=== PATIENT | male | born 1945 | race Asian ===

== ENCOUNTER 2019-10-02 02:34 | Inpatient (IN) | payer OTHER, MEDICARE ==
[~2019-10-02] VITALS: Ht 167.6 cm; Wt 42.2 kg
[2019-10-02 03:21] LABS: BASOPHIL % 0.2 % (0-2); PLATELET COUNT 205 x10^3mcL (130-400); RED CELL DISTRIBUTION WIDTH 13.8 % (11.5-14.5)
[2019-10-02 03:22] LABS: CALCIUM 8.8 mg/dL (8.5-10.1); CARBON DIOXIDE 24.8 mmol/L (21-32); CHLORIDE SERUM 101 mmol/L (98-107); CREATININE SERUM 0.5 mg/dL (0.7-1.3); GLUCOSE SERUM 116 mg/dL (74-106); POTASSIUM SERUM 3.8 mmol/L (3.5-5.1); SODIUM SERUM 137 mmol/L (136-145)
[2019-10-02 03:27] LABS: ALBUMIN 3.1 g/dL (3.4-5.0); ALKALINE PHOSPHATASE 59 U/L (46-116); ALT/SGPT 34 U/L (16-63); AST/SGOT 24 U/L (15-37); BILIRUBIN TOTAL 0.55 mg/dL (0.20-1.00); TOTAL PROTEIN, SERUM 7.4 g/dL (6.4-8.2)
[2019-10-02 04:29] LABS: CHOLESTEROL/HDL RATIO 5.1
[2019-10-02 04:30] VITALS: BP 155/98
[2019-10-02 04:33] LABS: T3 TOTAL 0.91 ng/mL
[2019-10-02 04:34] LABS: FREE T4 1.77 ng/dL (0.76-1.46); FREE THYROXINE INDEX 3.8 ug/dL (1.4-4.5); T4(THYROXINE) 10.3 ug/dL (4.7-13.3)
[2019-10-02 05:28] LABS: UA SPECIFIC GRAVITY 1.025 (1.005-1.035); microscopic required? YES; urine erythrocyte TRACE (NEGATIVE)
[2019-10-02 05:40] LABS: AMPHETAMINE QUAL UR NONE DETECTED (See below)
[2019-10-02 08:15] VITALS: BP 153/98
[2019-10-02 09:24] VITALS: Ht 167.6 cm; Wt 42.2 kg
[2019-10-02 11:10] VITALS: BP 140/62
[2019-10-02 15:15] VITALS: BP 123/80
[2019-10-02 17:31] VITALS: BP 118/79
[2019-10-02 23:12] VITALS: BP 115/76
[2019-10-03 05:40] VITALS: BP 101/67
[2019-10-03 06:57] LABS: BASOPHIL % 0.1 % (0-2); PLATELET COUNT 208 x10^3mcL (130-400)
[2019-10-03 07:22] LABS: CARBON DIOXIDE 27.3 mmol/L (21-32); CHLORIDE SERUM 100 mmol/L (98-107); CREATININE SERUM 0.4 mg/dL (0.7-1.3); GLUCOSE SERUM 111 mg/dL (74-106); MAGNESIUM 2.2 mg/dL (1.8-2.4); PHOSPHOROUS 3.6 mg/dL (2.5-4.9); POTASSIUM SERUM 3.6 mmol/L (3.5-5.1); SODIUM SERUM 137 mmol/L (136-145)
[2019-10-03 10:09] VITALS: BP 99/63
[2019-10-03 12:29] VITALS: BP 117/82
[2019-10-03 16:22] VITALS: BP 105/68
[2019-10-03 20:35] VITALS: BP 125/76
[2019-10-04 05:37] VITALS: BP 112/73
[2019-10-04 06:23] LABS: BASOPHIL % 0.2 % (0-2); PLATELET COUNT 255 x10^3mcL (130-400); RED CELL DISTRIBUTION WIDTH 13.7 % (11.5-14.5)
[2019-10-04 06:57] LABS: CARBON DIOXIDE 26.7 mmol/L (21-32); CHLORIDE SERUM 104 mmol/L (98-107); GLUCOSE SERUM 103 mg/dL (74-106); POTASSIUM SERUM 3.2 mmol/L (3.5-5.1); SODIUM SERUM 140 mmol/L (136-145)
[2019-10-04 06:58] LABS: CALCIUM 9.3 mg/dL (8.5-10.1); CREATININE SERUM 0.4 mg/dL (0.7-1.3); MAGNESIUM 2.2 mg/dL (1.8-2.4); PHOSPHOROUS 2.9 mg/dL (2.5-4.9)
[2019-10-04 08:14] VITALS: BP 114/76
[2019-10-04] MEDS ORDERED: XARELTO15 M1 PO (09:36)
[2019-10-04] MEDS ORDERED: LEVAQUIN500 M1 PO (09:37)
[2019-10-04 10:31] VITALS: BP 114/76
[2019-10-04] MEDS ORDERED: ACYCLOVIR400 MG PO (10:34)
[2019-10-04 12:35] VITALS: BP 126/83
== END 2019-10-04 16:14 | disposition home or self-care (01) | DRG 134 ==
LOC: ED 02:34 → IC 03:30 → DU 03:30 → IC 04:23 → DU 17:47
PROVIDERS: Emergency Medicine; ADMIT Internal Medicine
DX: I26.99 Other pulmonary embolism without acute cor pulmonale (principal); J96.01 Acute respiratory failure with hypoxia; E43 Unspecified severe protein-calorie malnutrition; G12.21 Amyotrophic lateral sclerosis; J18.9 Pneumonia, unspecified organism; E78.5 Hyperlipidemia, unspecified; R13.10 Dysphagia, unspecified; I10 Essential (primary) hypertension; Z74.01 Bed confinement status; Z68.1 Body mass index [BMI] 19.9 or less, adult; Z23 Encounter for immunization
CPT/HCPCS: 36600; 83880; 84439; 85378; 87804; 90658; 90732; 97110-GP; G0378; J0133; J1100; J1644; J1956; J2543; J7040; J7620; Q0092; Q9967

== ENCOUNTER 2019-10-07 11:58 | Inpatient (IN) | payer OTHER, MEDICARE ==
[~2019-10-07] VITALS: Ht 165.1 cm; Wt 47.0 kg
[~2019-10-07 11:58] MED LIST: ACYCLOVIR400 MG PO; LEVAQUIN500 M1 PO; XARELTO15 M1 PO
--- NOTE | 2019-10-07 12:10 | NUR ---
PT BIBA FROM HOME WITH CO INCREASED ALOC. PER SON, PT WAS [place] [facility] [place] AND WAS DIAGNOSED WITH PE AND GIVEN RX FOR BLOOD THINNERS, BUT PER SON, INSURANCE IS NOT COVERING MEDICATIONS SO PT HAS NOT BEEN TAKING MEDS. PT HAS HX OF ALS AND IS BED BOUND AND URINATES IN BED LYNCH WITH HELP BY SON. PER SON, PT DOES NOT REALLY COMMUNICATE AND JUST MUMBLES. PER SON PT WANTED TO USE THE RESTROOM THIS AM AT 0700 AND EVER SINCE THEN PT HAS NOT BEEN ACTING NORMAL PER SON. SON STATES HIS COLOR WAS MORE PALE AND WAS HAVING EXTRA WEAKNESS. AT THIS TIME PT IS RESPONDING AND LOOKING AND WATCHING SON, SON STATES COLOR IS COMING MORE TOO AND PT IS LOOKING MORE " NORMAL." PT 90% O2 ON RA AND 96% ON 2L NC. PT TEMP WAS LOW AND MADE AWARE. ANNALISE DILLARD INITIATED. PT IS BEING TREATED AT THIS TIME FOR SHINGLES. SCABS NOTED TO LOWER BACK WHICH PT SON STATES IS LOOKING BETTER SINCE TAKING MEDS. PT IS HOOKED UP TO FULL MONITORS, PT ABLE TO FOLLOW COMMANDS TO BEST OF ABILITY. EKG DONE AT BEDSIDE. PT SON REMAINS AT BEDSIDE, WILL CONTINUE TO MONITOR.
--- NOTE | 2019-10-07 13:00 | NUR ---
PT TO CT VIA [facility].
--- NOTE | 2019-10-07 13:07 | NUR ---
PT RETURNED FROM CT VIA [facility]
[2019-10-07 13:10] LABS: UA SPECIFIC GRAVITY >=1.030 (1.005-1.035); microscopic required? YES; urine erythrocyte 2+ (NEGATIVE)
[2019-10-07 13:13] LABS: BASOPHIL % 0.8 % (0-2); PLATELET COUNT 334 x10^3mcL (130-400)
[2019-10-07 13:45] LABS: CALCIUM 8.8 mg/dL (8.5-10.1); CARBON DIOXIDE 25.5 mmol/L (21-32); CHLORIDE SERUM 105 mmol/L (98-107); CREATININE SERUM 0.5 mg/dL (0.7-1.3); GLUCOSE SERUM 154 mg/dL (74-106); POTASSIUM SERUM 4.1 mmol/L (3.5-5.1); SODIUM SERUM 143 mmol/L (136-145)
[2019-10-07 13:50] LABS: ALKALINE PHOSPHATASE 58 U/L (46-116); ALT/SGPT 47 U/L (16-63); AST/SGOT 28 U/L (15-37); BILIRUBIN TOTAL 0.45 mg/dL (0.20-1.00); TOTAL PROTEIN, SERUM 7.3 g/dL (6.4-8.2)
--- NOTE | 2019-10-07 14:28 | NUR ---
BIPAP IN PLACE. PT TOLERATING WELL
[2019-10-07 15:50] LABS: CHOLESTEROL/HDL RATIO 3.9
[2019-10-07 15:59] LABS: FREE T4 1.64 ng/dL (0.76-1.46); FREE THYROXINE INDEX 4.2 ug/dL (1.4-4.5); T3 TOTAL 0.67 ng/mL; T4(THYROXINE) 10.2 ug/dL (4.7-13.3)
[2019-10-07 16:01] VITALS: BP 119/79
--- NOTE | 2019-10-07 16:20 | NUR ---
PT WAS RECEIVED BY PRIMARY NURSE OMAR FROM ED AT 1531H. PT CAME IN DUE TO ALOC, WEAKNESS AND SOB. PT HAS HIS EYES OPEN, EYE ARE ABLE TO TRACK, NO VERBAL RESPONSE AT THIS TIME, PER PT'S SON, PT ABLE TO SPEAK 1-2 WORDS AT TIMES. PT ON BIPAP WITH THE FF. SETTINGS: IPAP=14, EPAP=6, FIO2=60%, RATE=18. SHALLOW BREATHING NOTED. NO S/S OF SOB NOTED AT THIS TIME. NO S/S OF CHEST PAIN/PRESSURE, SINUS TACHYCARDIA ON THE MONITOR, HR AT 113. NO S/S OF ABDOMINAL DISCOMFORT. ABDOMEN IS SOFT. W/ SINHALA 16 MCCAULEY CATHETER DRAINING W/ YELLOW COLORED URINE. W/ DARK DISCOLORATIONS ON THE RIGHT ABDOMEN AND RIGHT BACK, W/ ECCHYMOSIS ON BUE, AND OPEN WOUNDS ON THE MID-BACK (LARGEST WOUND MEASUREMENT: 1CM X 0.5CM, NO DRAINAGE/FOUL ODOR NOTED). IV SITE PATENT AND INTACT. SIDE RAILS UPX2. CALL LIGHT ON REACH. PRIMARY NURSE OMAR AT BEDSIDE FOR CONTINUITY OF CARE.
[2019-10-07 16:24] VITALS: BP 118/74
--- NOTE | 2019-10-07 18:49 | NUR ---
HEPARIN PROTOCOL INITIATED. LOADING DOSE 2600 UNIT BOLUS ADMINISTERED. HEPARIN STARTED AT INITIAL RATE OF 500 UNITS/HR. NEXT PTT ORDERED FOR 0045. WITNESSED AND VERIFIED W/ RN SANTOSH.
--- NOTE | 2019-10-07 19:26 | NUR ---
PT RESTING IN BED, AWAKE, NON-VERBAL, RESP E/U ON 2L NC. NO ACUTE DISTRESS NOTED. IV TO LH, HEPARIN DRIP INFUSING WELL AT 500 UNITS/HR. SALINE LOCK TO RAC W/ NO ERYTHEMA OR EDEMA. MCCAULEY IN PLACE DRAIING GREY URINE TO GRAVITY. BED IN LOWEST POSITION AND CALL LIGHT WITHIN REACH. CARE ENDORSED TO VICTORIA GONZÁLES.
--- NOTE | 2019-10-07 19:35 | NUR ---
RECEIVED PT FROM DAY SHIFT RN. PT AWAKE, NON-VERBAL. FAMILY MEMEBER AT BEDSIDE. PT ABLE TO COMMUNICATE WITH HEAD GESTURES YES/NO QUESTIONS. PT DENIES PAIN. BREATHING EVEN AND UNLABORED ON NC 2L/MIN NO SOB NOTED, RT PROTOCOL. TELE #14 ST HR 101. NO ACUTE DISTRESS NOTED. IV LH INFUSING HEPARIN DRIP AT A RATE OF 500 UNITS/HR. NO ACTIVE BLEEDING NOTED. IV RAC PATENT. F/C IN PLACE DRAINING DARK GREY URINE. CALL BUTTON WITHIN REACH. SAFETY PRECAUTIONS IN PLACE. WILL CONTINUE TO MONITOR. CONTACT PRECAUTIONS IN PLACE.
--- NOTE | 2019-10-07 20:09 | NUR ---
PER DR POON HEPARIN DRIP RE-ADJUST TO 800 UNITS/HR PER PE HEPARIN PROTOCOL.
[2019-10-07 21:05] VITALS: BP 137/91
--- NOTE | 2019-10-08 00:38 | NUR ---
PT AWAKE, PT ON BIPAP. NO RESP DISTRESS NOTED. NO ACUTE DISTRESS NOTED. HEPARIN DRIP INFUSING AT 800 UNITS/HR WITH NO ACTIVE BLEEDING. PT TURN AND REPOSITIONED. SAFETY PRECAUTIONS IN PLACE. WILL MONITOR.
--- NOTE | 2019-10-08 01:55 | NUR ---
PTT RESULT OF 88.3 HEPARIN DRIP ADJUSTED PER HEAPRIN DRIP CALCULATION, VERIFIED WITH SECOND RN. HEPARIN DRIP INFUSION AT A RATE OF 700 UNITS/HR. NO ACTIVE BLEEDING NOTED. NEXT PTT ORDER.
[2019-10-08 05:39] VITALS: BP 106/73
--- NOTE | 2019-10-08 06:21 | NUR ---
PT SLEPT POORLY THROUGHOUT THE NIGHT WITH NO ACUTE DISTRESS NOTED. BREATHING EVEN AND UNLABORED ON NC 2L/MIN NO SOB NOTED. PT USED BIPAP THROGUHOUT THE NIGHT. RT PROTOCOL. IV LH PATENT HEPARIN DRIP INFUSING AT RATE OF 700 UNITS/HR. NO ACTIVE BLEEDING NOTED. IV RAC PATENT, INFUSING WELL. PT TURN AND REPOSITIONED Q2HRS AND NEEDED. F/C IN PLACE DRAINING DARK GREY COLOR URINE. CALL BUTTON WITHIN REACH.SAFETY PRECAUTIONS IN PLACE. SON AT BEDSIDE. WILL CONTINUE TO MONITOR AND ENDORSE CARE TO DAY SHIFT RN.
[2019-10-08 06:30] LABS: BASOPHIL % 0.3 % (0-2); PLATELET COUNT 334 x10^3mcL (130-400); RED CELL DISTRIBUTION WIDTH 13.7 % (11.5-14.5)
--- NOTE | 2019-10-08 07:30 | NUR ---
PT IS AAOX4, NONVERBAL, ABLE TO MAKE NEEDS KNOWN WHEN COMMUNICATING WITH FAMILY. PT ON BIPAP: IPAP 14, RR 18, EPAP6, O2 AT 40%. TELE [address] READING NSR. IV CATH TO LH WITH HEPARIN RUNNING AT 800 UNIT/HOUR. IV CATH TO RAC WITH FLUIDS RUNNING. BOTH SITES WITHIN NORMAL LIMITS. NO S/S OF INFECTION OR INFILTRATION. COVERED WITH CDI DRESSINGS. PT UNABLE TO MOVE SELF, WILL BE TURNED AND REPOSITIONED Q 2 HOURS AND PRN. MCCAULEY CATH IN PLACE, PATENT, DRAINING GREY URINE. PT NOTED WITH SMALL SCRATCHES WITH SCABS TO BACK, ARELY. NO S/S OF INFECTION NOTED. CALL LIGHT WITHIN REACH. BED IN LOWEST POSITION. CONTACT PRECAUTIONS IN PLACE FOR HX OF SHINGLES.
--- NOTE | 2019-10-08 07:37 | NUR ---
PT AWAKE. NO SIGNS OF ACUTE DISTRESS NOTED. HEPARIN DRIP INFUSING TO LH AT A RATE OF 700 UNITS/HR. NO BLEEDING NOTED. NO ACUTE DISTRESS NOTED. CALL BUTTON WITHIN REACH. SAFETY PRECAUTIONS IN PLACE. ENDORSED CARE TO DAY SHIFT RN, ALL QUESTIONS ADDRESSED.
--- NOTE | 2019-10-08 08:17 | NUR ---
LAB REPORTED THAT PT'S PTT IS THERAPEUTIC AT 61.4. HEPARIN WILL REMAIN RUNNING AT 700 UNITS/HOUR AT THIS TIME. A NEW PTT HAS BEEN ORDER AT 1200 THIS DAY. WILL CONTINUE TO MONITOR. PT AND PT'S FAMILY MADE AWARE.
--- NOTE | 2019-10-08 08:20 | NUR ---
REASSED PT'S VS S/P 15 MIN, VS T 97.6, 97, 15, 92/61 (68), 99% ON O2 N/C AT 2 LMP. PT DENIES S/S OF BLOOD TRANSFUSION REACTION. RESP EVEN AND UNLABORED. NO DISTRESS NOTED. DENIES PAIN AT THIS TIME. CALL LIGHT WITHIN REACH.
[2019-10-08 08:30] VITALS: BP 97/71
[2019-10-08 09:45] LABS: CALCIUM 8.3 mg/dL (8.5-10.1); CARBON DIOXIDE 23.4 mmol/L (21-32); CHLORIDE SERUM 108 mmol/L (98-107); CREATININE SERUM 0.4 mg/dL (0.7-1.3); GLUCOSE SERUM 107 mg/dL (74-106); POTASSIUM SERUM 3.3 mmol/L (3.5-5.1); SODIUM SERUM 144 mmol/L (136-145)
--- NOTE | 2019-10-08 12:09 | NUR ---
KCL 20 MEQ PO GIVEN FOR K+= 3.3. ZOSYN IVPB GIVEN. R/T ASSISTED WITH BIPAP PT TOOK KCL PO. BIPAP IN PLACE AT THIS TIME. PT DENIES PAIN. CALL LIGHT WITHIN REACH. WILL CONTINUE TO MONITOR.
--- NOTE | 2019-10-08 13:39 | NUR ---
NEW PTT= 66.7. PT'S HEPARIN DRIP REDUCED TO 600 UNITS/HOUR. VERIFIED BY VICTORIA RUDOLPH. PT MADE AWARE. NEW PTT ORDERED FOR 1729 TODAY. WILL CONTINUE TO MONITOR.
[2019-10-08 13:40] VITALS: BP 143/88
--- NOTE | 2019-10-08 15:07 | NUR ---
SCHEDULED MED GIVEN AND TOLERATED WELL CRUSHED WITH APPLE SAUCE. R/T ASSISTED WITH BIBAP DURING ADMINISTRATION. PT DENIES PAIN AT THIS TIME. BIPAP IN PLACE. CALL LIGHT WITHIN REACH. FAMILY AT BEDSIDE.
--- NOTE | 2019-10-08 16:06 | NUR ---
AIR MATRESS PLACE FOR SKIN MAINTENANCE. PT TOLERATED ACTIVITY WELL.
--- NOTE | 2019-10-08 17:17 | NUR ---
SPOKE WITH DR. DURHAM, MADE HIM AWARE PT'S ALTHOUGH PT IS ON N/S AT 100/HR, PT URINE OUTPUT IS APPROX 33ML/HOUR. PT HAS BLOODY URINE. PT HAS DECREASED APPETITE AND ONLY TOLERATED 2 ENSURE TODAY. NO NEW ORDERS AT THIS TIME. FAMILY HAS BEED EDUCATED ON THE OPTION FOR HOSPICE OR GTUBE PLACEMENT AND TRACH.
[2019-10-08 17:25] VITALS: BP 140/89
--- NOTE | 2019-10-08 17:47 | NUR ---
HEPARIN HELD PER DR. DURHAM, PT AWAITING U/S BLADDER DUE TO ACTIVE BLEEDING. MCCAULEY CLAMPED PER U/S TECH PT'S BLADDER NEEDS TO BE FULL. U/S TECH STATED IT WILL BE 2-3 HOURS BEFORE U/S WILL BE TAKEN. DR. DURHAM MADE AWARE. MCCAULEY WAS CLAMPED AT 1745. WILL ENDORSE TO NEXT SHIFT AND MADE RADHA, ORGANIZATIONAL DEVELOPMENT CONSULTANT NURSE AWARE. FAMILY MADE AWARE OF NEW ORDERS.
--- NOTE | 2019-10-08 18:21 | NUR ---
PT IS AAOX4, NONVERBAL. HEPARIN DRIP HELD AT THIS TIME UNTIL 1PM ON O. PT'S MCCAULEY CATH CLAMPED AT THIS TIME DUE TO PENDING U/S OF BLADDER, NOC RN WILL BE MADE AWARE. IV CATH TO RAC AND LH PATENT, SITES WNL. PT ON BIPAP WITH CONTIUOUS PULSE OX. AIR MATRESS IN PLACE. BED ALARM ON. PT TURNED AND REPOSITIONED Q 2 HOURS AND PRN THROUGH OUT SHIFT. FAMILY AT BEDSIDE. WILL CONTINUE TO MONITOR.
--- NOTE | 2019-10-08 19:15 | NUR ---
PT RECEIVED A/O X4, NONVERBAL, PT PRIMARILY UNDERSTANDS ANDORRAN. FAMILY AT BEDSIDE IS ABLE TO COMMUNICATE WITH PT; PT NODS OR SHAKES HEAD TO YES/NO QUESTIONS. TELE #14, SINUS TACH, PT DENIES ANY CP/PRESSURE. PULSES PALPABLE, NO EDEMA PRESENT. BREATHING IS EVEN AND UNLABORED ON BIPAP: IPAP-14, EPAP-6, RATE-18, 02-40%, CONT PULSE OX-96%, NO RESP DISTRESS OBSERVED. ABD SOFT AND NONDISTENDED, NO N/V PRESENT. MCCAULEY CATH SECURED AND IN PLACE, DRAINING TO GRAVITY, DARK GREY URINE NOTED IN DRAINAGE BAG, MCCAULEY CATH CLAMPED AT THIS TIME, PENDING US BLADDER. GENERALIZED WEAKNESS, ON AIR MATTRESS. NO S/S OF PAIN OBSERVED. CONTACT PRECAUTIONS IN PLACE FOR HX OF SHINGLES. IVF INFUSING WELL TO RAC, SL TO LH, IV SITES PATENT AND INTACT. HEPARIN DRIP FOR PE ON HOLD AT THIS TIME UNTIL 10/09/19 @ 1300. NO ACUTE DISTRESS NOTED. FAMILY AT BEDSIDE. BED IN LOWEST SETTING, SIDE RAILS UP X2, CALL LIGHT WITHIN REACH. WILL CONT TO MONITOR.
[2019-10-08 20:01] VITALS: BP 135/88
--- NOTE | 2019-10-08 20:15 | NUR ---
US TECH AT BEDSIDE FOR US BLADDER. MCCAULEY UNCLAMPED AT THIS TIME. NO ACUTE DISTRESS NOTED. WILL CONT TO MONITOR.
--- NOTE | 2019-10-08 21:30 | NUR ---
PER VICE PRESIDENT LENDING-LAUREN NEGRETE, "SPOKE WITH PT'S SON AND SPOUSE AT BEDSIDE, AND THEY WOULD LIKE TO DO PEG PLACEMENT SINCE PT HAS NOT BEEN EATING MUCH. THE FAMILY WOULD ALSO LIKE TO DO ALL MEASURES IN CASE SOMETHING HAPPENS."
--- NOTE | 2019-10-08 23:10 | NUR ---
SCHEDULE PO MEDS CRUSHED AND GIVEN WITH APPLESAUCE. PT TOLERATED POORLY AND DID NOT FINISH ENTIRE DOSE. PT REFUSED TO CONTINUE EATING THE MEDICATION. ASPIRATION PRECAUTIONS IN PLACE. NO S/S OF ASPIRATION, COUGHING, OR ACUTE DISTRESS OBSERVED. WILL NOTIFY RESIDENT.
[2019-10-09] VITALS (13 sets, daily range): BP systolic 101–164; BP diastolic 68–101
--- NOTE | 2019-10-09 06:24 | NUR ---
PT'S URINE OUTPUT DURING SHIFT-200 ML, DARK RED URINE. BLADDER SCANNER SHOWING >480 ML RESIDUAL. BLOOD CLOTS NOTED IN DRAINAGE BAG AND AROUND URETHRA. DR POON MADE AWARE. PER HANNY SINCLAIR TO IRRIGATE MCCAULEY, ORDERS RECEIVED. MCCUALEY CATH IRRIGATED AND PATENT, DRAINING TO GRAVITY. URINE OUTPUT AFTER IRRIGATION-550 ML, DARK RED URINE. NO ACUTE DISTRESS NOTED. WILL CONT TO MONITOR.
[2019-10-09 06:38] LABS: PLATELET COUNT 305 x10^3mcL (130-400); RED CELL DISTRIBUTION WIDTH 13.9 % (11.5-14.5)
[2019-10-09 06:54] LABS: CALCIUM 8.4 mg/dL (8.5-10.1); CHLORIDE SERUM 106 mmol/L (98-107); CREATININE SERUM 0.3 mg/dL (0.7-1.3); GLUCOSE SERUM 106 mg/dL (74-106); SODIUM SERUM 144 mmol/L (136-145)
--- NOTE | 2019-10-09 07:33 | NUR ---
RECEIVED PATIENT. IN BED, STABLE. FAMILY AT BEDSIDE. ON BIPAP AT THIS TIME. NO ACUTE RESP DISTRESS NOTED. SOB NOTED. NO C/O PAIN AT THIS TIME. HEPARIN DRIP REMAINS ON HOLD. MCCAULEY CATHETER SHOWS BLOODY URINE WITH SEDIMENTS. IV TO RAC INTACT AND PATENT. NO ERYTHEMA/SWELLING NOTED. IV TO LEFT HAND FOR HEPARIN DRIP NOTED TO HAVE SLIGHT SIGNS OF BLEEDING AROUND SITE, BUT IV INTACT AND PATENT. PT PUT ON NPO STATUS DUE TO POSSIBLE TRACHEOSTOMY AND PEG TUBE PLACEMENT. PT AND FAMILY MADE AWARE. SAFETY PRECAUTION IN PLACE. HOB ELEVATED. ASPIRATION PRECAUTION IN PLACE. CALL LIGHT WITHIN REACH. WILL CONTINUE TO MONITOR.
--- NOTE | 2019-10-09 07:39 | NUR ---
PT SLEPT AT INTERVALS THROUGHOUT THE EVENING. BREATHING IS EVEN AND UNLABORED ON BIPAP, NO RESP DISTRESS NOTED. PT DENIES HAVING ANY PAIN AT THIS TIME. MCCAULEY CATH SECURE AND IN PLACE DRAINING TO GRAVITY, DARK RED URINE NOTED, UO-750 ML. MCCAULEY CARE GIVEN. NO ACUTE DISTRESS NOTED AT THIS TIME. ALL NEEDS MET AND ANTICIPTED. SON AT BEDSIDE. CALL LIGHT WITHIN REACH. CONT OF CARE ENDORSED TO AM NURSE.
--- NOTE | 2019-10-09 08:15 | NUR ---
SPOKE WITH DR. DAVILA REGARDING PATIENT STATUS. PER DR. DAVILA, KEEP PATIENT NPO FOR TRACHEOSTOMY AT 0900. FAMILY MADE AWARE. WILL CONTINUE TO MONITOR.
--- NOTE | 2019-10-09 08:55 | NUR ---
SON SEEN SPEAKING WITH DR. MARK REGARDING PLAN OF CARE. ALL QUESTIONS AND CONCERNS ARE ADDRESSED. WILL CONTINUE TO MONITOR.
--- NOTE | 2019-10-09 09:05 | NUR ---
ANESTHESIOLOGIST SEEN SPEAKING WITH SON REGARDING RECOMMENDATIONS FOR PATIENT CARE. ALL QUESTIONS AND CONCERNS ARE BEING ADDRESSED. WILL CONTINUE TO MONITOR.
[2019-10-09 09:22] LABS: BAND NEUTROPHIL 1 % (0-10); MONOCYTE 4 % (0-7); SEGMENTED NEUTROPHILS 92 % (37-75)
[2019-10-09 09:23] LABS: PLATELET MORPHOLOGY PLATELETS INCREASED; rbc morphology (normal/abnorm) NORMAL (NORMAL)
--- NOTE | 2019-10-09 10:00 | NUR ---
PER DR. JAFFE, PATIENT IS GOING TO ICU AT THIS TIME TO BE INTUBATED. RT AT BEDSIDE TO HELP WITH TRANSPORT.. DR. NICOLE SAYED AND DR. JAFFE AT [facility] DURING TRANSPORT. PATIENT STABLE. NO DUSTRESS NOTED. WILL ENDORSE CARE TO ICU NURSE.
--- NOTE | 2019-10-09 10:24 | NUR ---
GAVE REPORT TO VICTORIA OSBORNE. ALL NEEDS ATTENDED TO. MORNING MEDICATIONS ENDORSED TO ICU CHARGE NURSE. WILL CONTINUE TO MONITOR. TELE MONITOR 14 RETURNED TO TELE STATION.
--- NOTE | 2019-10-09 10:46 | NUR ---
1001- PATIENT ARRIVED ON UNIOT ACCOMPANIED BY DR JAFFE, OSCAR RT, AND SETTER INDUCTION HEATING EQUIPMENT ANNA. PATIENT REMOVED FROM MST BED AND PLACED IN ICU BED #5. PATIENT TO BE INTUBATED BY DR JAFFE. VITALS UPON ARRIVAL BP 151/91, HR 105, RR 23, SPO2 100% ON NONREBREATHER AT 15LPM. 1010- BP 151/91, 1 LITER NS BOLUS INITIATED PER DR JAFFE ORDER 1014- PATIENT ADMINISTERED 20 MG ETOMIDATE IVP 1015- PATIENT ADMINSITERED 40 MG SUCC'S IVP 1015-PATIENT INTUBATED WITH 7.5 AT 25LL. PATIENT PLACED ON VENT SETTINGS AC MODE RATE 15, VT 300, PEEP 5, FIO2 100%. 1020- #16 POLISH NGT INSERTED INTO LEFT NARE. CONFIRMATION VIA AIR BOLUS OVER GASTRIC REGION. AWAITING CXR FOR ETT AND NGT PLACMENT.
--- NOTE | 2019-10-09 10:57 | NUR ---
PT OXYGEN SATURATION IN THE 'S. SPOKE WITH DR. JAFFE, ORDERS TO INCREASE TIDAL VOLUME 350 AND IF NOT EFFECTIVE TO GO TO PRESSURE CONTROL. WILL CONTINUE TO MONITOR.
--- NOTE | 2019-10-09 10:58 | NUR ---
SPOKE WITH DR. GARCIA, RADIOLOGIST. INFORMED THAT ETT WAS ADVANCED TO FAR, PULL BACK 3CM AND RETAKE CHEST XRAY. WILL CONTINUE TO MONITOR.
--- NOTE | 2019-10-09 10:59 | NUR ---
DR. JAFFE CALLED, WAS INFORMED OF ETT PLACEMENT. ORDERS TO REDUCE TIDAL VOLUME BACK TO 300 AND CONTINUE TO MONITOR.
--- NOTE | 2019-10-09 11:08 | NUR ---
XRAY AT BEDSIDE FOR ETT AND NGT PLACEMENT.
--- NOTE | 2019-10-09 11:28 | NUR ---
OSCAR BRAY AT BEDSIDE. FIO2 ON VENT TITRATED TO 70%.
--- NOTE | 2019-10-09 12:00 | NUR ---
RECEIVED PATIENT LEHTARGIC WITH FAMILY AT BEDSIDE. PATIENT HAS A MCCAULEY TO GRAVITY AND URINE IA REDDISH WITH CLOTS AND IS CLEARING AND PATIENT HAS VERSED AND FENTANYL RUNNING AND PATIENT IS RESTING WELL. THE PATIENT WAS INTUBATED ON ARRIVAL AFTER TRANSFER FROM [facility]. HE HAS RALES TO THE UPPER LOBES AND DIMINISHED AT THE BASES. HE HAS RECEIVED ZOSYN IVPB AND IS RUNNING A K RIDER AT THIS TIME. PATIENT DOES NOT APPEAR IN ANY PAIN OR DISCOMORT. VITALS AT THIS TIME AT 97.6, 18, 85, 133/79.
--- NOTE | 2019-10-09 12:21 | NUR ---
DR. MARK AT BEDSIDE, UPDATE PROVIDED.
--- NOTE | 2019-10-09 12:36 | NUR ---
0.25/KG/HR OF FENTANYL AND 0.50 MG/HR OF VERSED INITATED FOR SEDATION.
--- NOTE | 2019-10-09 15:14 | NUR ---
PATIENT IS WITH EYES TRACKING AND DOES NOT APPEAR IN ANY PAIN AT THIS TIME GAVE THE ACYCLOVIR VIA NG TUBE AND FLUSHED INDICATED. PATIENT TOLERATED WELL. WILL INCREASE THE FEEDING AT AROUND FOUR PM.
--- NOTE | 2019-10-09 15:54 | NUR ---
Initial Nutrition Assessment: ICU5 CLEM SEPULVEDA 73M HR IA Dx: Respiratory failure, acute coronary syndrome PMHx: HTN, PE, ALS, Shingles, Non-verbal PSHx: none per H and P Labs: (10/09) K 3.0L, Cr 0.3L, WBC 13.1 Meds: D50%, Humalin, KCL, sublimaze, versed, zosyn, zovirax, Diet: Vital AF at 40 ml/hr and fwf 50ml q4h via NG tube PO intake since admission: Pt intubated on TF via NG tube Ht: 165.1cm/65in Wt: 43.2kg/95lbs BMI: 15.9 Bed scale: N/A IBW: 62kg/136lbs %IBW: 69% UBW: 140lbs 1 year ago Age: 73 Food Allergies: NKFA Skin: not WNL, red discoloration to back/ABD open wound to back Alvino: 14 Edema: no edema noted GI: NPO at this time for G-tube placement and tracheostomy Last BM: 10/08 Per H and P(10/07), pt is a 73 year old male with PMH of ALS, HTN, HLD, PE who was BIBA from home for altered mental status. Per progress note (10/09), pt's family agreed about tracheostomy and G-tube, and pt is intubated with no signs of distress. RD Note (10/09) During the time of visit, pt's son was presented by the bedside. Pt was on ventilator, and his tube feed was running at 10 ml/hr. Per RN, pt was intubated today. Per pt's son, pt's appetite started decreasing a month ago, and his weight decreased as well. Per pt's son, pt was briefly on puree diet because he did not like to chew, but pt wears dentures. Problem with: N/V/D/C: none noted Problems with: Chewing: Swallowing: Pt on pureed diet briefly. Had hard time swallowing Current appetite: NPO Recent wt change: Wt decreased pt's son not able to recall amount %wt change: 32% in a year per pt's son. Vitamin/Supplement use: MVI briefly Special diet at home: Puree diet for a brief amount of time between hospitals Physical activity: N/A Nutrition education given (specify specific nutrition education and handout given): N/A Food-drug interactions? Education given? N/A Estimated Nutritional Needs Based on body weight (62kg) Energy:4363-7676 kcal/day (25-30 kcal/kg for vent dependent) Protein:93-124 g/day (1.5-2 g/kg for vent dependent) Fluid:7869-9125 mL/day (1 mL/kcal) or per MD Nutrition Diagnosis: 1. Altered GI function r/t pathophysiological cause a/e/b pt intubated and dependence on tube feeding for nutrition. Intervention 1. Recommend vital at 55 ml/hr. This will provide a volume of 1320ml, 1584kcal, 99g protein, and 1070 ml free water meeting 100% of the estimated energy and protein needs. 2. Recommend FWF 80 ml Q4H. This will provide additional 479 ml free water. 3. Recommend swallow evaluation if pt is extubated. Paged Dr. Friedman. Waiting for response. Monitor/Evaluate Goal: Pt receive at least 75% of estimated needs via nutrition support Monitor: Nutrition support tolerance, Labs, GI function F/U in 2-3 days as high risk 10/11-
--- NOTE | 2019-10-09 16:05 | NUR ---
APPLIED SCDS AND PATIENT H HIS FEEDING AT 20CC PER HOUR. TOLERATED WELL SO FAR. FAMILY REMAINS AT BEDSDIE AND ATTENTIVE WITH CARE.
--- NOTE | 2019-10-09 17:20 | NUR ---
SEDATION WAS INCREASED AND PATIENT IS CALMER AGAIN. NOW RUNNING AT 2 ML AND 10 PER HOUR. PATIENT WAS AGIATD THE THE CHARGE NURSE ADJUSTED THE DOSING ACCORDINGLY. PATIENT IS COMFORTABLE AT THIS TME. CATH CARE GIVEN AND NTOED SOME BLOOD AT THE PENIS AND PATIENT HAS NO ACTIVE BLEEDING AT THIS TIME. VITALS ARE AT 122/79, 21, 97%, 92 AND PATIENT HAS OUTPUT OF URINE THAT IS REDDISH IN COLOR OF 500CC. THE URINE IN THE TUBING IS CLEARING FORM YELLOW TO STREAKS OF RED. NO ACUTE RESPIRATORY DISTRESS AT THIS TIME.
--- NOTE | 2019-10-09 18:04 | NUR ---
PATIENT GIVEN ANOTHER DOSE THE ACYLOVIR AND THE ZOSYN. PATIENT NG REMAINS PATIENT AND INTACT. WILL ENDORSE TO THE NEXT SHIFT.
--- NOTE | 2019-10-09 19:05 | NUR ---
RECEIVED REPORT FROM SCHUYLER KESSLER. WILL RESUME CARE.
--- NOTE | 2019-10-09 19:29 | NUR ---
RECEIVED PT INTUBATED AND SEDATED ON FENTANYL AT 0.25MCG/KG/HR AND VERSED AT 1MG/HR. PT OPENS EYES SPONTANEOUSLY AND IS ABLE TO FOLLOW SOME SIMPLE COMMANDS. PUPILS 3MM BRISK. 7.5 ETT AT 22CM LL INTACT AND SECURED. ON VENT VCV-AC MODE WITH SETTINGS OF VT 300, R 15, FIO2 70%, PEEP5. LUNG SOUNDS DIMINISHED BILATERALLLY. S1S2 AUSCULTATED. NO S/SX OF ANY PAIN. NO REDNESS, DRAINAGE, OR SWELLING NOTED TO EENT. CAP REFILL <3 SEC. TRACE EDEMA NOTED TO BUE'S AND BLE'S. PULSES PALPABLE. SCD'S TO BLE'S. ABDOMEN FLAT, NONTENDER. BS ACTIVE X 4. NO N/V. NGT FEEDING OF VITAL AF INCRESED FROM 20CC/HR TO 30CC/HR WITH FWF OF 10C5MER. NO RESIDUAL NOTED AND PLACEMENT CHECKED. NO BM AT THIS TIME. MCCAULEY CATHETER IN PLACE DRAINING VIA GRAVITY GREY URINE WITH SOME TRACES OF BLOOD NOTED. BED IN LOW POSITION. SON AT BEDSIDE. CALL LIGHT WITHIN REACH. WILL CONTINUE TO MONITOR.
[2019-10-10] VITALS (18 sets, daily range): BP systolic 91–136; BP diastolic 59–81
[2019-10-10 05:25] LABS: BASOPHIL % 0.2 % (0-2); PLATELET COUNT 249 x10^3mcL (130-400); RED CELL DISTRIBUTION WIDTH 14.1 % (11.5-14.5)
--- NOTE | 2019-10-10 06:02 | NUR ---
INCREASED RATE FROM 15 TO 18. DECREASED FIO2 FROM 70% TO 50% POST ABG RESULTS PER DR. DURHAM.
[2019-10-10 06:41] LABS: CARBON DIOXIDE 32.4 mmol/L (21-32); CHLORIDE SERUM 105 mmol/L (98-107); CREATININE SERUM 0.3 mg/dL (0.7-1.3); MAGNESIUM 1.7 mg/dL (1.8-2.4); PHOSPHOROUS 1.4 mg/dL (2.5-4.9); SODIUM SERUM 143 mmol/L (136-145)
[2019-10-10 07:27] LABS: GLUCOSE SERUM 169 mg/dL (74-106)
--- NOTE | 2019-10-10 07:35 | NUR ---
RECEIVED PT'S REPORT FROM LEAVING NURSE. PT'S SON AT BEDSIDE. PT IS SEDATED ON VERSED 1MG/HR, FENTANYL 0.25MCG/KG/H, RSS 4. L NARIS NGT IN PLACE FOR TUBE FEEDING AT 40ML/HR WFW 50ML Q4H. PT ON VENT VCV/AC MODE: VT 300, RR 18, FIO2 50%, PEEP 5. MCCAULEY IN PLACE, DRAINING VIA GRAVITY, YELLOW URINE. WILL CONTINUE TO MONITOR.
--- NOTE | 2019-10-10 10:06 | NUR ---
PT IS AWAKE, HR INCREASED FROM BASELINE TO 120s, RR 24, O2 SAT 98%. PT'S SON DOESN'T AGREE TO INCREASE SEDATION SINCE PT IS NOT BITING TUBE. BOLUS 1MG VERSED GIVEN. PT'S HR BACK TO 100s.
--- NOTE | 2019-10-10 10:30 | NUR ---
ASSUMED PT CARE FROM VICTORIA MOREIRA. PT IS SEDATED WITH FENTANYL GTT AT 0.25 MCG/KG/HR AND VERSED AT 1 MG/HR. ORAL ET TO VENT WITH SETTINGS OF TV 300, RATE 18, FIO2 405, PEEP 5. PT IS ON AC MODE AND TOLERATING SETTINGS NGT TO LT NARE INTACT, PATENT AND SECURED WITH CONTNOUS NGT FEED OF VITAL AT 40 ML/HR AND FWF 50 ML Q 4 HR. ET IS AT 22 LL; SECURED. IVF SITES TO RFA AND LAC INTACT, PATENT AND WITHOUT INFILTRATION. MCCAULEY TO GRAVITY DRAINING YELLOW URINE. SON IN THE ROOM; NSG SHIFT REASSESSMENT DONE AND DOCUMENTED. WILL CONTINUE TO MONITOR STATUS.
--- NOTE | 2019-10-10 12:40 | NUR ---
ADJUST NGTF SETTINGS OF FWF 150 ML/3HRS.
--- NOTE | 2019-10-10 13:30 | NUR ---
PATIENT WITH RESPIRATIONS 28. VERSED TITRATED TO 2 MG/HR AND FENTANYL TO 0.75 MCG/KG/MIN. WILL CONTINUE TO MONITOR.
--- NOTE | 2019-10-10 16:34 | NUR ---
1330-STARTED NEW IVF SITE ON THE LFA WITH ANGIO 22 FOR HEPARIN GTT 1400-HEPARIN GTT STARTED PER PROTOCOL.
--- NOTE | 2019-10-10 17:16 | NUR ---
NEXT PTT SCHEDULED AT 2000
--- NOTE | 2019-10-10 18:00 | NUR ---
PATIENT WITH RESPIRATIONS 28. VERSED TITRATED TO 2 MG/HR AND FENTANYL TO 0.75 MCG/KG/MIN. WILL CONTINUE TO MONITOR.
--- NOTE | 2019-10-10 18:29 | NUR ---
NO NEW ACUTE CHANGES IN STATUS. NO SOB; REMAIN ON SAME VENT SETTTINGS; WILL CONTINUE TO MONITOR STATUS.
--- NOTE | 2019-10-10 19:05 | NUR ---
RECEIVED REPORT FROM MARY KESSLER. WILL RESUME CARE.
--- NOTE | 2019-10-10 21:30 | NUR ---
PTT 116.9. HEPARIN GTT HELD PER PROTOCOL AND WILL RECHECK PTT AT 2200.
--- NOTE | 2019-10-10 21:30 | NUR ---
PTT 116.9. HEPARIN GTT HELD PER PROTOCOL AND WILL RECHECK PTT AT 2215.
--- NOTE | 2019-10-10 23:04 | NUR ---
PTT 83.6. HEPARIN GTT RESUMED AT 800UNITS/HR PER HEPARIN PROTOCOL. NEXT PTT AT 0400.
--- NOTE | 2019-10-10 23:39 | NUR ---
FENTANYL DECREASED TO 0.25MCG/KG/MIN AND VERSED TO 1MG/HR TO ACHIEVE RSS OF 4.
[2019-10-11] VITALS (18 sets, daily range): BP systolic 95–138; BP diastolic 61–91
--- NOTE | 2019-10-11 04:00 | NUR ---
MERCEDES CHEATHAM AT BEDSIDE FOR BLOOD DRAW.
[2019-10-11 04:20] LABS: PLATELET COUNT 228 x10^3mcL (130-400); RED CELL DISTRIBUTION WIDTH 14.3 % (11.5-14.5)
[2019-10-11 04:24] LABS: BASOPHIL % 3.3 % (0-2)
--- NOTE | 2019-10-11 04:47 | NUR ---
WHEN CLEANING PT. PT NOTED TO HAVE HEMATURIA AND BLOOD AROUND PENIS. DR. POON MADE AWARE. HEPARIN GTT HELD AT THIS TIME.
--- NOTE | 2019-10-11 04:47 | NUR ---
WHEN CLEANING PT. PT NOTED TO HAVE SOME BLOOD IN THE MCCAULEY TUBING AND AROUND PENIS. DR. POON MADE AWARE. HEPARIN GTT HELD AT THIS TIME.
[2019-10-11 04:59] LABS: CALCIUM 7.9 mg/dL (8.5-10.1); CARBON DIOXIDE 36.7 mmol/L (21-32); CHLORIDE SERUM 101 mmol/L (98-107); CREATININE SERUM 0.3 mg/dL (0.7-1.3); GLUCOSE SERUM 152 mg/dL (74-106); MAGNESIUM 1.7 mg/dL (1.8-2.4); PHOSPHOROUS 2.2 mg/dL (2.5-4.9); POTASSIUM SERUM 3.6 mmol/L (3.5-5.1); SODIUM SERUM 139 mmol/L (136-145)
--- NOTE | 2019-10-11 05:04 | NUR ---
Relayed critical PTT 84.[address] Quintero with signs of bleeding of hematuria . New orders noted and carried out. Heparin drip on hold for now. Will continue to monitor.
--- NOTE | 2019-10-11 07:40 | NUR ---
PATIENT ON VENT AND SEDATED WITH FENTANYL AT 0.25MCG/KG/HR AND VERSED AT 1MG/HR. PATIENT RESPONSIVE TO VERBAL STIMULI AND FOLLOWS COUPLE OF SIMPLE COMMANDS. NGT SECURED AT LEFT NARE AND CONNECTED TO TUBE FEEDING WITH VITAL AF AT 40ML/HR AND FREE WATER FLUSH AT 150ML/Q3HR. NO RESIDUAL AT THIS TIME. ETT 7.5 SECURED AT 21CM AT LIPLINE. ETT TO VENT VIA VCV/AC MODE: FIO2 40%, RATE 18, VT 300 AND PEEP 5. TELE # 5 SHOWS SINUS TACHYCARDIA. IV SITES TO RAC, LFA AND LEFT HAND. MCCAULEY CATH TO GRAVITY DRAINING BLOOD TINGED URINE. PENIS NOTED WITH SOME BLODD. SCDS TO BLE. BED IS AT LOWEST POSITION. HEAD OF BED ELEVATED. EXTREMITIES ELEVATED.
--- NOTE | 2019-10-11 08:48 | NUR ---
PATIENT CALM WITH NO PAIN. FENTANYL ON HOLD AT THIS TIME.
--- NOTE | 2019-10-11 09:31 | NUR ---
RC'D PHONE CALL FROM [facility]. PER MD REQUEST, PT TO GO TO SURGERY 10/12/19 FOR TRACH PLACEMENT. PT TO BE NPO AT MIDNIGHT AND DC HEPARIN AT MIDNIGHT, ORDERS ENTERED AT THIS TIME. PRIMARY RN NOTIFIED AND MADE AWARE.
--- NOTE | 2019-10-11 09:45 | NUR ---
STILL CLEANER TUBE CALLED REGARDING TRACH PLACEMENT. TRACH PLACEMENT NOW SCHEDULED FOR 10/13/2019 *TO FOLLOW* DR RIGGS SURGERY AT 0800. DR DAVILA NOTIFIED AND MADE AWARE OF ADJUSTMENTS, VERBALIZED UNDERSTANDING. PER STILL CLEANER TUBE, OR ACOUSTICAL ENGINEER NOTIFIED AND MADE AWARE OF SURGERY. SURGERY SCHEDULED AT THIS TIME.
--- NOTE | 2019-10-11 09:57 | NUR ---
DR SEPULVEDA AND MED TEAM PRESENT AT BEDSIDE TO DISCUSS POC WITH PT. UPDATED ON PTS CURRENT STATUS. ALL QUESTIONS AND CONCERNS ADDRESSED
--- NOTE | 2019-10-11 09:58 | NUR ---
DR. SEPULVEDA AND DR. DURHAM ARE MAKING ROUND TO SEE THE PATIENT.
--- NOTE | 2019-10-11 10:25 | NUR ---
PATIENT AWAKE, RR>20, AND HR>120; FENTANYL RESUMED AT 0.25MCG/KG/HR TO COMFORT THE PATIENT.
--- NOTE | 2019-10-11 11:15 | NUR ---
PATIENT CALM DOWN; FENTANYL TITRATED FROM 0.25MCG/KG/HR DOWN TO 0.15MCG/KG/HR.
--- NOTE | 2019-10-11 14:15 | NUR ---
DR. JAFFE WAS AT BEDSIDE SEEING THE PATIENT. UPDATE PROVIDED TO THE DOCTOR.
--- NOTE | 2019-10-11 14:15 | NUR ---
DR JAFFE PRESENT AT BEDSIDE TO DISCUSS POC WITH PT. UPDATED ON PTS CURRENT STATUS. ALL QUESTIONS AND CONCERNS ADDRESSED.
--- NOTE | 2019-10-11 15:10 | NUR ---
PATIENT WITH EPISODES OF INCREASED HR >120 AND RR>30; FENTANYL TITRATED FROM 0.15MCG/KG/HR TO 0.25MCG/KG/HR.
--- NOTE | 2019-10-11 18:02 | NUR ---
PATIENT WAS GIVEN A BEDBATH. M[facility]AU[facility] CARE PROVIDED TO THE PATIENT.
--- NOTE | 2019-10-11 19:02 | NUR ---
RECEIVED REPORT FORM SHAJI KESSLER. WILL RESUME CARE.
--- NOTE | 2019-10-11 19:02 | NUR ---
REPORT GIVEN TO ELEANOR MALONE RN.
--- NOTE | 2019-10-11 19:35 | NUR ---
PER DR. DURHAM, INFORMED OF PT THAT DR. JAFFE AND DR. SUMNER WILL HAVE MEETING TO DISCUSS POC WITH HER AND NOTH SONS AT NOON TOMORROW.
[2019-10-12] VITALS (17 sets, daily range): BP systolic 106–136; BP diastolic 69–97
--- NOTE | 2019-10-12 | NUR ---
TF HELD AT THIS TIME FOR TRACH AND PEG PLACEMENT PROCEDURE IN AM.
--- NOTE | 2019-10-12 04:40 | NUR ---
PT CLENED AND WIPED DOWN WITH CHG WIPES FOR PROCEDURE THIS AM. ALL LINENS, CHUCKS, AND GOWN CHANGED. NO BM DURING SHIFT. 750CC OF YELLOW URINE OUTPUT IN [place].
--- NOTE | 2019-10-12 04:50 | NUR ---
HOUSEKEEPING COORDINATOR AT BEDSIDE FOR BLOOD DRAW.
[2019-10-12 05:18] LABS: PLATELET COUNT 241 x10^3mcL (130-400)
--- NOTE | 2019-10-12 07:00 | NUR ---
REPORT RECEIVED FROM KIRA KESSLER. ALL QUESTIONS AND CONCERNS ADDRESSED.
--- NOTE | 2019-10-12 07:30 | NUR ---
PATIENT RECEIVED LAYING IN BED WITH EYES CLOSED. OPENS EYES TO VERBAL STIMULI. NGT TO LEFT NARE CLAMPED. ETT IN PLACE TO VENT SETTINGS AC MODE RATE 18, VT 300, PEEP 5, FIO2 40%. CHEST EXPANSION EVEN AND SYMMETRICAL. IV TO LH, LFA, RAC IN PLACE. FENTANYL INFUSING AT 0.25 MCG/KG/HR AND VERSED AT 1 MG/HR. ABDOMEN FLAT. SCD'S IN PLACE TO BLE. PATIENT WITH NO S/S OF PAIN OR DISCOMFORT NOTED. WILL CONTINUE TO MONITOR.
[2019-10-12 07:36] LABS: CALCIUM 8.5 mg/dL (8.5-10.1); CARBON DIOXIDE 35.2 mmol/L (21-32); CHLORIDE SERUM 100 mmol/L (98-107); CREATININE SERUM 0.3 mg/dL (0.7-1.3); GLUCOSE SERUM 105 mg/dL (74-106); MAGNESIUM 2.1 mg/dL (1.8-2.4); SODIUM SERUM 138 mmol/L (136-145)
--- NOTE | 2019-10-12 12:30 | NUR ---
RAYMOND BRAY AT BEDSIDE AND TITRATED FIO2 TO 30% ON VENT.
--- NOTE | 2019-10-12 12:50 | NUR ---
DR JAFFE, NEREYDA ROSS, DR SUMNER MYSELF AND PATIENT'S FAMILY IN ICU QUIET ROOM. POC DISCUSSED INCLUDING TRACH/PEG PLACEMENT VERSUS HOSPICE. ALL FAMILY MEMBERS HAD MANY QUESTIONS FOR DR JAFFE AND CASE MANAGEMENT. ALL QUESTIONS AND CONCENRS ADDRESSED REGARDING POC AND HOW TO PROCEED. FAMILY WOULD LIKE TO WITHDRAW SOME SEDATION SO THEY MAY ATTEMPT TO ASK PATIENT WHAT HE WOULD WISH. FAMILY WOULD ALSO LIKE SOME TIME TO DISCUSS AMONGST THEMSELVES HOW TO PROCEED.
--- NOTE | 2019-10-12 13:15 | NUR ---
SEDATION TITRATED TO 0.25 MCG/KG/HR AND VERSED AT 0.25 MG/HR. FAMILY AT BEDSIDE ATTEMPTING TO AWAKEN PATIENT.
--- NOTE | 2019-10-12 14:45 | NUR ---
USING TRANSLATION ON PATIENT'S BED, I WAS ABLE TO ASK PATIENT A COUPLE QUESTIONS IN [place]: 1. ARE YOU IN PAIN? PATIENT GESTURED "YES" 2. ARE YOU HAVING TROUBLE BREATHING? PATIENT GESTURED "YES" I TELEPHONED PATIENT'S SON AND ASKED HIM WHETHER HE WAS RETURNING SOON PATIENT APPEARS DISTRAUGHT WITH EYES WIDE OPEN, HR IN 110'S AND RR IN 30'S. PATIENT'S SON STATED THAT HE WILL BE BACK LATER. I EXPLAINED TO PATIENT'S SON THAT PATIENT IS UNCOMFORTABLE AND IN PAIN AND I WOULD LIKE TO INCREASE HIS SEDATION TO HIS PREVIOUS DRIP RATE. PATIENT'S SON AGREED. SEDATION OF FENTANYL INCREASED TO 0.5 MCG/KG/HR AND VERSED AT 1 MG/HR. WILL CONTINUE TO MONITOR
--- NOTE | 2019-10-12 16:18 | NUR ---
Follow-up Nutrition Assessment: ICU5 CLEM SEPULVEDA 73M HR FU Dx: Respiratory failure, acute coronary syndrome PMHx: HTN, PE, ALS, Shingles, Non-verbal Labs: (10/12) CO2 35.2H, Cr 0.3L (10/07) A/G 0.7L Meds: Neutra-phos packet, Pepcid, Sublimaze, Versed, zosyn Diet: NPO d/t trach placement today PO Intake: PT on TF Weights: (10/12) 43kg I/Os: (10/12) 2076.2350ml = -274ml, (10/11) 3515/2650ml = 865ml, (10/10) 450/502ml = -52ml Skin: Skin warm and dry. Ecchymosis noted to BUE. R flank to R ABD noted with small brown discoloration Alvino: 10 Edema: no edema noted GI: BS active x 4, ABD flat and non-tender Last BM: No BM noted Per progress note (10/11): pt is scheduled for PEG tube with dr Johansen tomorrow and tracheostomy on Saturday with Dr. Caraballo. RD Note (10/12): Pt was lying in bed no signs of distress. Pt's tube feed was not running d/t possible tracheostomy procedure. Discussed with Dr. Lund regarding the pt. Per Dr. Lund, pt's family was still trying to decide between getting tracheostomy and PEG or comfort care. TF recommendation was provided to Dr. Lund if pt's family decided to use nutrition support, Dr. Lund acknowledged. Estimated Nutritional Needs Based on body weight (62kg) Energy:5324-7703 kcal/day (25-30 kcal/kg for vent dependent) Protein:93-124 g/day (1.5-2 g/kg for vent dependent) Fluid:6827-2133 mL/day (1 mL/kcal) or per MD Nutrition Diagnosis: (ongoing) . 1. Altered GI function r/t pathophysiological cause a/e/b pt intubated and dependence on tube feeding for nutrition Intervention: 1. If nutrition support is needed, recommend vital at 55 ml/hr. This will provide a volume of 1320ml, 1584kcal, 99g protein, and 1070 ml free water meeting 100% of the estimated energy and protein needs. 2. If nutrition support is needed, recommend FWF 80 ml Q4H. This will provide additional 479 ml free water (total 1549 ml with tube feeding) or per MD. Monitor/Evaluate: Goal: Have pt meet at least 75% of estimated needs Monitor: Diet implementation, Labs, GI function F/U in 2-3 days as high risk
--- NOTE | 2019-10-12 18:18 | NUR ---
TUBE FEED INITATED AT 10 ML/HR. PATIENT TO BE NPO AT 0000 FOR POSSIBLE TRACH AND PEG.
--- NOTE | 2019-10-12 20:00 | NUR ---
RECEIVED PT IN BED INTUBATED AND SEDATED. PT ABLE TO OPEN EYES SPONTANEOUSLY. LUNG SOUNDS RALES, BILATERALLY. ETT 7.5 AT 22 CM LIPLINE. VENT SETTINGS AC MODE, RATE 18, Vt300, PEEP 5, FIO2 OF 30%. SUCTION NEEDED. NG TUBE TO LEFT NARE, INFUSING VITAL AF 1.2 AT 10ML/HR WITH FWF AT 80ML/Q4H. PLACEMENT CHECKED VIA AUSCULTATION. RESIDUAL CHECKED, NONE. TF TO BE STOPPED AT MIDNIGHT FOR POSSIBLE PROCEDURE IN AM. ABD NON DISTENDED. [place] DRAINING TO GRAVITY, DRY BLOOD NOTED TO URETHRA. ECCHYMOSIS TO BUE. SCD'S TO BLE. TURN PT Q2H. INITIAL ASSESSMENT COMPLETED. ROOM CLOSE TO STATION FOR CLOSE MONITORING. WILL CONTINUE TO MONITOR CLOSELY.
--- NOTE | 2019-10-12 22:00 | NUR ---
ALL DUE MEDS GIVEN ORDERED. REPOSITIONED FOR COMFORT. PT APPEARS COMFORTABLE. WILL CONTINUE TO MONITOR CLOSELY.
[2019-10-13] VITALS (18 sets, daily range): BP systolic 121–157; BP diastolic 82–109
--- NOTE | 2019-10-13 | NUR ---
TF IS NOW OFF, PER DR ORDERS FOR POSSIBLE TRACH AND PEG PLACEMENT. MIDNIGHT ASSESSMENT COMPLETED. REPOSITIONED PT AT THIS TIME, PT ON RIGHT SIDE. ZOSYN INFUSING WELL. WILL CONTINUE TO MONITOR CLOSELY.
--- NOTE | 2019-10-13 04:10 | NUR ---
PT REMAINS SEDATED WITH SETTINGS UNCHANGED. REPOSITIONED AT THIS TIME. TF HAS BEEN OFF SINCE 0000. 0400 SHIFT ASSESSMENT COMPLETED. WILL CONTINUE TO MONITOR CLOSELY.
[2019-10-13 05:34] LABS: BASOPHIL % 0.1 % (0-2); PLATELET COUNT 302 x10^3mcL (130-400); RED CELL DISTRIBUTION WIDTH 14.3 % (11.5-14.5)
[2019-10-13 06:01] LABS: CALCIUM 9.1 mg/dL (8.5-10.1); CARBON DIOXIDE 31.3 mmol/L (21-32); CHLORIDE SERUM 98 mmol/L (98-107); CREATININE SERUM 0.4 mg/dL (0.7-1.3); GLUCOSE SERUM 97 mg/dL (74-106); MAGNESIUM 2.3 mg/dL (1.8-2.4); PHOSPHOROUS 3.5 mg/dL (2.5-4.9); POTASSIUM SERUM 4.2 mmol/L (3.5-5.1); SODIUM SERUM 137 mmol/L (136-145)
--- NOTE | 2019-10-13 06:30 | NUR ---
AM CARE PROVIDED. PT REMAINS NPO. TUBE FEEDING OFF, AND NGT CLAMPED. VENT SETTINGS UNCHANGED. FENTANAL INFUSING AT 0.5 MCG/KG/HR AND VERSED INFUSING AT 1 MG/HR. PT TOLERATING WELL. ALL NEEDS TENDED TO. WILL ENDORSE TO INCOMING SHIFT.
--- NOTE | 2019-10-13 08:55 | NUR ---
BP 154/104, HR 122, RESP 30, SEDATION INCREASED TO FENTANYL 0.75MCG/KG/HR AND VERSED 2MG/HR. WILL CONT TO MONITOR CLOSELY
--- NOTE | 2019-10-13 11:08 | NUR ---
BP 121/82, HR 106, RESP 27, SEDATION INCREASED TO FENTANYL 0.75MCG/KG/HR AND VERSED 2MG/HR. WILL CONT TO MONITOR CLOSELY
--- NOTE | 2019-10-13 11:25 | NUR ---
SEDATION TITRATED TO 0.25 MCG/KG/HR AND VERSED AT 0.25 MG/HR. FAMILY AT BEDSIDE ATTEMPTING TO AWAKEN PATIENT AT THIS TIME. WILL CONT TO MONITOR VS CLOSELY
--- NOTE | 2019-10-13 12:17 | NUR ---
PT REMAINS NPO, SPOT CHECKED BS 113. BP 144/101, HR 119, RESP 29, FAMILY CURRENTLY PRESENT AT BEDSIDE DISCUSSING PT WISHES OF CODE STATUS WITH PT, UNABLE TO INCREASE SEDATION AT THIS TIME. WILL CONTINUE TO MONITOR CLOSELY
[2019-10-13 12:42] LABS: MONOCYTE 7 % (0-7); SEGMENTED NEUTROPHILS 81 % (37-75); rbc morphology (normal/abnorm) NORMAL (NORMAL)
[2019-10-13 12:48] LABS: BAND NEUTROPHIL 0 % (0-10)
--- NOTE | 2019-10-13 13:43 | NUR ---
PT TRANSITIONED TO CPAP AT THIS TIME.
--- NOTE | 2019-10-13 13:58 | NUR ---
PT APNEIC, TRANSTIONED BACK TO AC MODE ON VENTILATOR
--- NOTE | 2019-10-13 14:18 | NUR ---
DR. JAFFE HAD A MEETING WITH THE PATIENT'S FAMILY INCLUDING HER TWO SON'S ANDRADE SEPULVEDA AND RYLEY SEPULVEDA, PATIENT'S NIECE, MYSELF AND DR. SUMNER. FAMILY ALL AGREE FOR PALLATIVE CARE ONCE THE PATIENT'S FAMILY COMES TO VISIT AND A [facility] CEREMONY HAS BEEN DONE BY [facility]. AT THIS TIME CODE STATUS WILL BE CHANGED TO DNR PER FAMILY'S PERMISSION. FAMILY WILL MOST LIKELY START PALLATIVE CARE AND MORPHINE DRIP TOMORROW. CHRISTIANO, PRIMARY NURSE MADE AWARE.
--- NOTE | 2019-10-13 14:20 | NUR ---
SCREEN FOR LOW ROBERTH SCALE AT RISK, CONTINUE TO FOLLOW PRESSURE ULCER PREVENTION INTERVENTIONS. -TURN AND REPOSITION PATIENT Q 2H -ASSESS AND MONITOR SKIN CONDITION DURING POSITION CHANGE -OFFLOAD BILATERAL HEELS BY PLACING PILLOWS UNDER CALVES AT ALL TIMES, UNLESS OTHERWISE CONTRAINDICATED -PRESSURE REDISTRIBUTION BY PLACING PILLOWS AND OFFLOADING SACRALCOCCYX -KEEP SKIN CLEAN AND DRY AT ALL TIMES.
--- NOTE | 2019-10-13 17:15 | NUR ---
TOTAL CARE PROVIDED, PT GIVEN BED BATH, REPOSITIONED AND CHUX AND LINEN CHANGED. MCCAULEY CARE AND ORAL CARE PROVIDED. PT TOLERATED WELL.
--- NOTE | 2019-10-13 19:06 | NUR ---
REPORT GIVEN TO INDER KESSLER. UPDATED ON PTS CURRENT STATUS. ALL QUESTIONS AND CONCERNS ADDRESSED
--- NOTE | 2019-10-13 19:10 | NUR ---
PT RESTING IN BED UNCHANGED WITH NO SIGNS OF ACUTE DISTRESS AT THIS TIME. PT SPONTANEOUSLY OPENS EYES AND TRACKS. PT GAG REFLEX INTACT. PT HAS ETT SIZE 7.5 LL 22 CM ON A/C MODE VT: 300 RR18 FIO2:30 PEEP: 5. PT HAS RALES BILAT O2 SAT 96% AT THIS TIME. PT HAS WEAK ULE AND BLE PULSES. NO EDEMA NOTED IN EXTREMITIES. SCDS IN PLACE. PT IS SINUS TACHY AT HR 118 SINUS RHYTHM. PT HAS DRY BROWN DISCOLORATION NOTED FROM PAST SHINGLES MID BACK TO RT FLANK. PT HAS LT NARE GT IN PLACE AND SECURED WITH NO RESIDUAL AT THIS TIME VITAL AF 1.2 10 ML/HR. PT HAS IV LFA 22G PATENT. PT HAS RAC 20G IV PATENT WITH NS TKO. PT HAS VERSED 0.5 MG/HR IV AND FENTANYL 0.5MCG/KG/MIN IV. F/C IN PLACE WITH DRY BLOOD CLOT NOTED AROUND MCCAU[place] CATHETER BUT IS DRAINING CLEAR YELLOW URINE 50 ML AT THIS TIME. NO BM. PT DOES NOT MOVE ALL 4 EXTREMITIES BUT IS CHRONIC HX OF ALS. ABDOMEN IS SOFT AND FLAT WITH HYPOACTIVE BOWEL SOUNDS. PT IS DNR AND PLANS FOR PALLIATIVE CARE TOMORROW. REPORT RECEIVED BY CHIEF UNIT FORESTER CHRISTIANO. WILL CONTINUE TO MONITOR PT.
--- NOTE | 2019-10-13 19:45 | NUR ---
FENTANYL TITRATED TO 0.25 MCG/KG/HR, VERSED TITRATED TO 0.25 MG/HR. RSS=5.
--- NOTE | 2019-10-13 21:45 | NUR ---
FENTANYL TITRATED TO 0.5 MCG/KG/HR, VERSED TITRATED TO 0.5 MG/HR. RSS=4.
--- NOTE | 2019-10-13 23:55 | NUR ---
PT IS RESTING IN BED AND UNCHANGED. PT SPONTANEOUSLY OPENS EYES AND TRACKS TO VOICE. PT REMAINS INTUBATED ETT 7.5 LL 22CM V/C FIO2:30 VT: 300 RR:18 PEEP:5 WITH O2 SAT AT 97% PT HAS HX OF ALS. UNABLE TO MOVE ALL 4 EXTREMITIES. PT ABDOMEN IS SOFT, FLAT AND NON-TENDER. BOWEL SOUNDS HYPOACTIVE X 4. VITAL AF 1.2 TF AT 20 ML/HR VIA LEFT NGT WITH 0 RESIDUAL. PT HAS FENTANYL 0.5 MCG/KG/MIN IV AND VERSED 0.5 MG/HR IV INFUSING. PT IS SINUS TACHYCARDIA AND REMAINS UNCHANGED FROM PREVIOUS EXAM. NO BM NOTED. F/C DRAINING TO GRAVITY YELLOW URINE. PT FAMILY AT BEDSIDE. PT REPOSITIONED AND EXTREMITIES PADDED AND ELVATED. BUE/BLE EQUAL MODERATE PULSES PRESENT. PT SHOWS NO SIGNS OF DISTRESS AT THIS TIME. WILL CONTINUE TO MONITOR PT.
[2019-10-14] VITALS (16 sets, daily range): BP systolic 126–161; BP diastolic 82–107; Ht 165.1 cm; Wt 47.0 kg
[2019-10-14 05:31] LABS: PLATELET COUNT 352 x10^3mcL (130-400)
[2019-10-14 05:33] LABS: BASOPHIL % 0 % (0-2)
[2019-10-14 05:59] LABS: CALCIUM 8.7 mg/dL (8.5-10.1); CARBON DIOXIDE 31.5 mmol/L (21-32); CHLORIDE SERUM 99 mmol/L (98-107); CREATININE SERUM 0.4 mg/dL (0.7-1.3); GLUCOSE SERUM 149 mg/dL (74-106); MAGNESIUM 2.4 mg/dL (1.8-2.4); POTASSIUM SERUM 3.8 mmol/L (3.5-5.1); SODIUM SERUM 137 mmol/L (136-145)
--- NOTE | 2019-10-14 06:00 | NUR ---
DR. SUMNER MADE AWARE OF PT ELEVATED WBC FROM 14.6 TO 16.0. NO NEW ORDERS GIVEN. PT IS ALREADY RECEIVING ZOSYN ABX IV. PT PLANS IS PALLIATIVE CARE EXTUBATION AT 0800 TODAY AND BE SWITCHED TO MORPHINE IV GTT. FAMILY AT BEDSIDE AND UPDATED WITH PLANS OF CARE. PT REMAINS UNCHANGED WITH NO SIGNS OF ACUTE DISTRESS. PT REMAINS SINUS TACHY HR 108BPM AND OPENS EYES SPONTANOUSLY. O2 SAT 96% WITH NO SIGNS OF RESPIRATORY DISTRESS. FENTANYL 0.5 MCG/KG/MIN IV GTT AND VERSED 0.5 MG/HR IV GTT INFUSING. WILL CONTINUE TO MONITOR PT. PT REPOSITIONED AND EXTREMITIES ELEVATED AND PADDED. SKIN CDI. LINEN CHANGED.
--- NOTE | 2019-10-14 07:11 | NUR ---
PT REPORT GIVEN TO PLANNER INTERNSHIP REID. ALL QUESTIONS ANSWERED. PLAN OF CARE ENDORSED. PT REMAINS UNCHANGED WITH NO SIGNS OF ACUTE DISTRESS. PT FAMILY AT BEDSIDE AND UPDATED WITH PLAN OF CARE. O2 SAT 96% HR 103 BP: 146/93. FENTANYL 0.5 MCG/KG/MIN IV GTT AND VERSED 0.5 MG/HR INFUSING. PT ENDORSED TO PLANNER INTERNSH[employer] REID.
--- NOTE | 2019-10-14 07:45 | NUR ---
PATIENT REMAINS ON VENT AND SEDATION WITH FENTANYL AT 0.5MCG/KG/HR AND VERSED AT 0.5MG/HR. PATIENT OPENS HIS EYES SPONTANEOUSLY AND TRACKING BUT UNABLE TO FOLLOW SIMPLE COMMANDS. JORDI PUPILS WITH BRISK REACTION TO LIGHT. ETT 7.5 SECURED AT 22CM AT LIPLINE. ETT TO VENT VIA VCV/AC MODE: FIO2 30%, RATE 18, VT 300, PEEP 5. NGT SECURED AT LEFT NARE AND PLACEMENT VERIFIED WITH SOME AIR BOLUS. NO RESIDUAL NOTED AT THIS TIME. NGT TO TUBE FEEDING WITH VITAL AF AT 20ML/HR AND FREE WATER FLUSH AT 80ML/Q4HR. WILL VERIFY WITH DOCTOR IF TUBE FEEDING WILL BE CONTINUED. TELE # 5 SHOWS SINUS TACHYCARDIA. IV SITES TO RAC, LFA AND LEFT HAND. M[place]AULEY CATH TO GRAVITY DRAINING YELLOW URINE. EXTREMITIES OFFLOADED. BED IS AT LOWEST POSITION. HEAD OF BED ELEVATED.
--- NOTE | 2019-10-14 10:18 | NUR ---
DR. NUÑEZ AND THE TEAM ARE MAKING ROUND TO SEE THE PATIENT. POC UPDATED.
--- NOTE | 2019-10-14 13:11 | NUR ---
DR. JAFFE IS AT BEDSIDE SEEING THE PATIENT.
--- NOTE | 2019-10-14 18:18 | NUR ---
NEW FANTANYL AND VERSED BAGS AND TUBING CHANGED FOR THE PATIENT DUE TO EXPIRATION OF THESE MEDICATIONS.
--- NOTE | 2019-10-14 18:47 | NUR ---
PATIENT WAS GIVEN A BATH, AND CHANGED. M[place]AU[place] CARE PROVIDED TO THE PATIENT. THE PATIENT'S SON IS AT BEDSIDE WITH THE PATIENT NOW.
--- NOTE | 2019-10-14 19:07 | NUR ---
REPORT GIVEN TO ELEANOR VERDUZCO RN. CONCERNS ADDRESSED.
--- NOTE | 2019-10-14 19:15 | NUR ---
RECIEVED REPORT FROM VICTORIA GIRARD. NURSING UPDATES. POC DISCUSSED. SEE SHIFT ASSESSMENT FOR ASSESSMENT.
--- NOTE | 2019-10-14 21:00 | NUR ---
NO ACUTE CHANGES. WILL CONT TO MONITOR.
--- NOTE | 2019-10-14 22:00 | NUR ---
NO ACUTE CHANGES. WILL CONT TO MONITOR.
--- NOTE | 2019-10-14 23:00 | NUR ---
NO ACUTE CHANGES. WILL CONT TO MONITOR.
[2019-10-15] VITALS (17 sets, daily range): BP systolic 100–153; BP diastolic 68–97
--- NOTE | 2019-10-15 | NUR ---
NO ACUTE CHANGES. WILL CONT TO MONITOR.
--- NOTE | 2019-10-15 02:00 | NUR ---
NO ACUTE CHANGES. WILL CONT TO MONITOR.
--- NOTE | 2019-10-15 04:00 | NUR ---
PT CLEANED AND LINENS CHANGED. NO ACUTE CHANGES. WILL CONT TO MONITOR.
[2019-10-15 05:17] LABS: BASOPHIL % 0 % (0-2); PLATELET COUNT 357 x10^3mcL (130-400)
[2019-10-15 06:17] LABS: CALCIUM 8.6 mg/dL (8.5-10.1); CARBON DIOXIDE 36.3 mmol/L (21-32); CHLORIDE SERUM 99 mmol/L (98-107); CREATININE SERUM 0.3 mg/dL (0.7-1.3); GLUCOSE SERUM 154 mg/dL (74-106); MAGNESIUM 2.3 mg/dL (1.8-2.4); PHOSPHOROUS 3.1 mg/dL (2.5-4.9); POTASSIUM SERUM 3.6 mmol/L (3.5-5.1); SODIUM SERUM 138 mmol/L (136-145)
--- NOTE | 2019-10-15 07:30 | NUR ---
PATIENT REMAINS ON VENT AND SEDATION WITH FENTANYL AT 0.5MCG/KG/HR AND VERSED AT 0.5MG/HR. PATIENT OPENS HIS EYES SPONTANEOUSLY AND BLINKING HIS EYES TO COMMUNICATE. PATIENT FOLLOWS SOME SIMPLE COMMANDS. JORDI PUPILS WITH BRISK REACTION TO LIGHT. ETT 7.5 SECURED AT 22CM AT LIPLINE. ETT TO VENT VIA VCV/AC MODE: FIO2 30%, RATE 18, VT 300 AND PEEP 5. NGT SECURED AT LEFT NARE; PLACEMENT VERIFIED WITH SOME AIR BOLUS. NGT TO TUBE FEEDING WITH VITAL AF AT 30ML/HR AND FREE WATER FLUSH AT 50ML/Q4H. TELE # 5 SHOWS SINUS TACHYCARDIA. IV SITES TO RAC, LFA AND LEFT HAND. MCCAULEY CATH TO GRAVITY DRAINING SCANT AMOUNT OF YELLOW URINE OUTPUT. HEAD OF BED ELEVATED. EXTREMITIES OFFLOADED. BED IS AT LOWEST POSITION.
--- NOTE | 2019-10-15 10:30 | NUR ---
DR. NUÑEZ AND THE TEAM ARE MAKING ROUND TO SEE THE PATIENT.
--- NOTE | 2019-10-15 10:37 | NUR ---
PATIENT'S RR >30; VERSED TITRATED FROM 0.5MG/HR UP TO 1MG/HR.
--- NOTE | 2019-10-15 15:07 | NUR ---
Follow-up Nutrition Assessment: ICU5 CLEM SEPULVEDA 73M HR FU Dx: Respiratory failure, acute coronary syndrome PMHx: HTN, PE, ALS, Shingles, Non-verbal Labs: (10/15) CO2 36.3H, Glucose 154H, Cr 0.3, WBC 13.4, H/H 12.4/38L Meds: Neutra-phos packet, Pepcid, sublimaze, versed, zosyn Diet: TF vital AF 1.2 at 30ml/hr. This provides 720ml volume, 864kcal, 54g protein, and 583ml free water meeting 56% of the estimated energy needs and 58% of the estimated protein needs. PO Intake: Pt on TF Weights: (10/15)46kg, (10/12)43kg I/Os: (10/12) 2076/2350ml = -274ml, (10/11) 3515/2650ml = 865ml Skin: not wnl, ecchymoses to BUE, Scabs and dark brown discoloration to mid back and right flank Alvino: 10 Edema: no edema noted. GI: ABD soft, BS hypoactive, no BM yet. Pt tolerating current TF with no residuals Last BM: none noted Per Progress note (10/15), pt's family is planning to start comfort care on Saturday. RD Note (10/15): Pt was lying in bed on ventilator during bedside visit. Pt's tube feed was running at 30 ml/hr. Per RN, pt was tolerating tube feed well with no residuals. Per RN, pt will be extubated and on palliative care on Saturday, but family still wants tube feed running during palliative care. Estimated Nutritional Needs Based on ideal body weight (62 kg) Energy: 1550-1860kcal/day (25-30 kcal/kg for vent dependent) Protein:93-124 g/day (1.5-2 g/kg for vent dependent) Fluid:2762-1560 mL/day (1 mL/kcal) or per MD Nutrition Diagnosis: (ongoing) 1. altered GI function r/t pathophysiological cause a/e/b pt intubated and dependence on tube feeding for nutrition. Intervention: 1. Recommend vital at 55 ml/hr if nutrition support is needed during palliative care. Paged Dr. Lund. Waiting for response. Monitor/Evaluate: Goal: Have pt meet at least 75% of estimated needs via nutrition support (not met, ongoing) Monitor: Nutrition support tolerance, Labs, GI function F/U in 2-3 days as high risk
--- NOTE | 2019-10-15 15:08 | NUR ---
1. Recommend vital at 55 ml/hr if nutrition support is needed during palliative care.
--- NOTE | 2019-10-15 17:28 | NUR ---
NEW FENTANYL AND VERSED BAGS AND TUBING CHANGED FOR THE PATIENT DUE TO EXPIRATION OF THE MEDS.
--- NOTE | 2019-10-15 18:21 | NUR ---
PATIENT WAS GIVEN A BATH AND CHANGED. MCCAULEY CARE PROVIDED TO THE PATIENT. THE FAMILY IS AT BEDSIDE.
--- NOTE | 2019-10-15 19:10 | NUR ---
RECIEVED REPORT FROM VICTORIA MOREIRA. NURSING UPDATES. POC DISCUSSED. SEE SHIFT ASSESSMENT FOR ASSESSMENT.
--- NOTE | 2019-10-15 21:00 | NUR ---
NO ACUTE CHANGES. WILL CONT TO MONITOR.
--- NOTE | 2019-10-15 23:00 | NUR ---
NO ACUTE CHANGES. WILL CONT TO MONITOR.
[2019-10-16] VITALS (19 sets, daily range): BP systolic 94–148; BP diastolic 65–93
--- NOTE | 2019-10-16 01:00 | NUR ---
NO ACUTE CHANGES. WILL CONT TO MONITOR.
[2019-10-16 05:35] LABS: BASOPHIL % 0.3 % (0-2); PLATELET COUNT 358 x10^3mcL (130-400); RED CELL DISTRIBUTION WIDTH 14.4 % (11.5-14.5)
[2019-10-16 06:13] LABS: CALCIUM 8.7 mg/dL (8.5-10.1); CARBON DIOXIDE 36.8 mmol/L (21-32); CHLORIDE SERUM 101 mmol/L (98-107); CREATININE SERUM 0.4 mg/dL (0.7-1.3); GLUCOSE SERUM 139 mg/dL (74-106); MAGNESIUM 2.4 mg/dL (1.8-2.4); PHOSPHOROUS 3.2 mg/dL (2.5-4.9); POTASSIUM SERUM 3.9 mmol/L (3.5-5.1); SODIUM SERUM 140 mmol/L (136-145)
--- NOTE | 2019-10-16 07:38 | NUR ---
RECEIVED THIS AM VENTED AND SEDATED. ON FENTANYL AND VERSED DRIP.IV SITE CLEAR. VENTED ON AC MODE VT-300,FIO2-30%,PEEP-5 AND RATE-18. TOLERATING WELL WITH CURRENT SETTING. NGT IN PLACE, PT OF TUBE FEEDING OF VITAL AF AT 30ML/HR. TOLERATING WELL, NO RESIDUAL, NO N/V. MCCAULEY CATH DRAINING TO GRAVITY WITH YELLOW URINE OUTPUT. PT REPOSITIONED IN BED FOR COMFORT. WILL CONTINUE WITH PLAN OF CARE.
--- NOTE | 2019-10-16 08:50 | NUR ---
DR JAFFE AT BEDSIDE TO ASSESS PATIENT. PATIENT APPEARS RESTLESS AND ANXIOUS WITH HR INCREASING TO HIGH 110'S AND RR IN HIGH 20'S. SEDATION OF FENTANYL 0.75MCG/KG/HR AND VERSED AT 1.5 MG/HR. WILL CONTINUE TO MONITOR.
--- NOTE | 2019-10-16 09:15 | NUR ---
PT AWAKE, APPEARS RESTLESS, HR UP TO 102BPM. SEDATION ADJUSTED, VERSED INCREASED TO 1.25MG/HR AND FENTANYL AT 0.75MCG/KG/HR. PT REPOSITIONED FOR COMFORT. HOB ELEVETED.
--- NOTE | 2019-10-16 12:40 | NUR ---
PATIENT'S SONS ARRIVED ON UNIT TO VISIT WITH THEIR FATHER. THEY HAVE BOTH REQUESTED THAT SEDATION BE TITRATED DOWN SO THEY MAY SPEAK WITH THEIR FATHER ONCE AGAIN ABOUT "TRACHEOSTOMY AND USP." BOTH SONS STATED THAT THE PATIENT HAS GESTURED MOST RECENTLY THAT HE WANTS TO HAVE A TRACH, PEG AND BE SENT SENT TO A USP. SONS ARE ALSO REQUESTING THAT WE WAIT UNTIL SATURDAY IF THEY WERE TO CHOOSE PALLIATIVE CARE. I SPOKE WITH BOTH SONS AT LENGTH ANSWERING QUESTIONS REGARDING TRACHEOSTOMY, NURSING FACILITIES AND PALLIATIVE CARE. I ALSO EXPLAINED TO SONS THAT THEY NEED TO MAKE SOME DECISION TODAY AND LET REGARDING THEIR CHOICE PATIENT IS UNCOMFORTABLE AND WE SHOULD PROCEED WITH TRACHEOSTOMY TREMAINE IF THAT IS THE AVENUE THAT THEY ARE GOING TO CHOOSE. I ALSO EXPLAINED TO THEM THAT WE WILL NOT BE WAITING UNTIL SATURDAY TO PROCEED WITH PALLIATIVE PATIENT IS SUFFERING AND THE FAMILY MEMBER THAT IS "FLYING IN" HAS HAD AMPLE AMOUNT OF TIME TO COME SEE PATIENT. SONS STATED THEY APPRECIATED MY FEEDBACK AND WOULD LIKE TO SPEAK WITH NEREYDA FROM CASE MANAGEMENT.
--- NOTE | 2019-10-16 12:45 | NUR ---
FAMILY AT BEDSIDE. PT RESTING, NO CHANGES FROM AM ASSESMENT. COMFORT MEASURES IN PLACE.
--- NOTE | 2019-10-16 13:00 | NUR ---
SPOKE WITH NEREYDA FROM AND INFORMED HER PATIENT'S SONS WOULD LIKE TO SPEAK WITH HER.
--- NOTE | 2019-10-16 13:05 | NUR ---
PATIENT TACHYPNEIC WITH RR 30'S AND HR IN HIGH 110'S. I SPOKE WITH SONS AND INFORMED THEM THAT PATIENT IN DISTRESS AND SEDATION TO RESUMED AT PREVIOUS RATE OF 0.75 MCG/KG/HR AND VERESED AT 1.5 MG/HR. WILL CONTINUE TO MONITOR.
--- NOTE | 2019-10-16 14:26 | NUR ---
REMAINS IN THE SAME STATUS. NO CHANGES IN VS. FAMILY AT BEDSIDE.
--- NOTE | 2019-10-16 16:29 | NUR ---
NEREYDA CASE MANAGEMENT SPOKE WITH PATIENT'S SON. PALLIATIVE EXTUBATION TO TAKE PLACE TOMORROW AT 1500. FAMILY WOULD LIKE TO FOLLOWING: MORPHINE DRIP TO BE STARTED PRIOR TO EXTUBATION PATIENT TO EXTUBATED IN ICU THEN TRANSFERRED UP TO FLOOR (OKAY TO SEND IN ICU BED) SO FAMILY MAY BE BEDSIDE AND CONFUCIANISM CEREMONY MAY TAKE PLACE. NGT TO BE LEFT IN PLACE WITH FEEDING AT 1 ML/HR (REMOVE ANY EXCESS GASTRIC RESIDUAL PRIOR TO EXTUBATION) N/C TO BE AT 2LPM (NO BIPAP, OXIMIZER, HI-FLOW- SONS ALREADY EXPLAINED WHY WE DO NOT USE HIGH O2) ONCE PATIENT HAS , PATIENT NOT TO BE MOVED FROM ROOM FOR 8 HOURS. (FAMILY REQUESTED 12HRS BUT AGREEMENT MADE FOR MAX OF 8 HOURS)
--- NOTE | 2019-10-16 16:59 | NUR ---
[facility] C[facility] DONE, PT TOLERATED WELL. COMFORT MEASURES MAINTAINED. REPOSITIONED FOR COMFORT.
--- NOTE | 2019-10-16 18:28 | NUR ---
RESTING COMFORTABLY, NO ACUTE CHANGES NOTED. NO CHANGES IN VS. REMAINS NRS ON THE MONITOR WITH HR 98 BPM, VS STABLE. IVF TO KVO , FENTANYL 0.75MCG/KG/HR AND VERSED DRIP AT 1.5MG/HR INFUSING WELL. PT TOLERATING WELL WITH FEEDING, NO RESIDUAL, NO N/V NOTED. REMAINS VENTED AND TOLERATING WELL WITH CURRENT SETTING. NO ACUTE DISTRESS NOTED. [facility] CATH REMAINS IN PLACE, DRAINING WELL TO GRAVITY. 750ML OUTPUT THIS SHIFT. NO BM TODAY. COMFORT MEASURES IN PLACE. WILL BE ENDORSED TO INCOMING SHIFT.
--- NOTE | 2019-10-16 19:30 | NUR ---
PT REPORT GIVEN BY [facility] RN. PT IS RESTING IN BED WITH NO SIGNS OF RESPIRATORY DISTRESS. PT IS SLEEPING COMFORTABLY WITH FENTANYL 1.5MCG/KG/HR IV AND VERSED 0.75 MG/HR IV INFUSING VIA LFA. LT HAND IV IN PLACE SL. PT HAS RFA IV IN PLACE NS 5ML/HR TKO. PT OPENS EYES SPONTANOUSLY TO TOUCH. PT UNABLE TO MOVE ALL 4 EXTREMITIES WHICH IS CHRONIC HX OF ALS. PT HAS A ETT 7.5 LL [address] WITH BILAT COARSE BREATH SOUNDS O2 SAT 97% LEFT NGT IN PLACE WITH VITAL 1.5 TF AT 30 ML/HR WITH FREE WATER FLUSH 50 ML Q 4H. 0 RESIDUAL NOTED. ALL 4 EXTREMITIES WARM TO TOUCH AND DRY WITH MODERATE PULSES BUE/BLE. NO EDEMA NOTED. F/C IN PLACE AND DRAING CLEAR YELLOW URINE WITH NO SIGNS OF HEMATURIA. CATHETER SITE CLEAN AND DRY. PT HAS ECCHYMOSIS TO BUE BUT SKIN IS CDI. ABDOMEN IS SOFT, NON-TENDER AND FLAT WITH HYPOACTIVE BOWEL SOUNDS X 4. NO BM NOTED. PT VENT SETTING A/C MODE FIO2:30 VT:300 RR:18 PEEP:5. PT IS SINUS RHYTHM. PT IS DNR. CURRENT PLANS IS FOR EXTUBATION TOMORROW AT 1500 WITH MORPHINE IV GTT. PT REPOSITIONED AND ALL EXTREMITIES ELEVATED. WILL CONTINUE TO MONITOR PT.
[2019-10-17] VITALS (13 sets, daily range): BP systolic 91–176; BP diastolic 62–98
--- NOTE | 2019-10-17 | NUR ---
PT IS RESTING COMFORTABLY WITH NO SIGNS OF ACUTE DISTRESS. PT REMAINS UNCHANGED FROM PREVIOUS EXAM. A/C MODE FIO2:30 RR:18 VT:300 ETT 7.5 LL 20 CM ORAL CARE GIVEN AND PT REPOSITIONED WITH ALL PRESSURE POINTS OFF LOADED. BILAT COARSE BREATH SOUNDS. NO RESPIRATORY DISTRESS NOTED. FAMILY IS AT BEDSIDE. SINUS RHYTHM. VITAL TF 1.5 30 ML/HR WITH FWF 50 Q 4H VIA LEFT NGT. NO RESIDUAL NOTED. NO BM NOTED. F/C IN PLACE WITH CLEAR YELLOW URINE DRAINING. SKIN CDI. WILL CONTINUE TO MONITOR PT.
--- NOTE | 2019-10-17 04:00 | NUR ---
PT IS RESTING IN BED COMFORTABLY WITH NO SIGNS OF ACUTE DISTRESS. PT REMAINS UNCHANGED FROM PREVIOUS EXAM. PT REPOSITIONED Q 2H AND ALL 4 EXTREMITIES OFF LOADED FROM ALL PRESSURE POINTS. PT AND LINEN CHANGED. ORAL CARE GIVEN. PT INTUBATED ETT 7.5 LL 20CM O2 SAT 98% A/C MODE FIO2: 30 RR:18 VT:300 PEEP:5 NO SIGNS OF RESPIRATORY DISTRESS. LEFT NGT IN PLACE WITH VITAL 1.5 AT GOAL 3O ML/HR WITH FWF 50 ML Q 4H, 0 RESIDUAL NOTED. FENTANYL 1.5 MCG/KG/HR IV AND VERSED 0.75 MG/HR IV INFUSING. PT OPENS EYES BILAT SPONTANOUSLY TO NAME. PT AT BEDSIDE. F/C IN PLACE AND DRAINING SMALL AMOUNTS OF YELLOW URINE. NO HEMATURIA NOTED. SKIN CDI AND UNCHANGED. PT CURRENT PLAN IS FOR PALLIATIVE CARE AT 1500 TODAY, PLAN TO EXTUBATE ON MORPHINE IV GTT. PT IS DNR. WILL CONTINUE TO MONITOR PT.
[2019-10-17 05:36] LABS: BASOPHIL % 0.2 % (0-2); PLATELET COUNT 375 x10^3mcL (130-400); RED CELL DISTRIBUTION WIDTH 14.2 % (11.5-14.5)
[2019-10-17 06:26] LABS: CALCIUM 8.9 mg/dL (8.5-10.1); CARBON DIOXIDE 33.1 mmol/L (21-32); CHLORIDE SERUM 102 mmol/L (98-107); CREATININE SERUM 0.3 mg/dL (0.7-1.3); GLUCOSE SERUM 130 mg/dL (74-106); MAGNESIUM 2.5 mg/dL (1.8-2.4); PHOSPHOROUS 2.9 mg/dL (2.5-4.9); SODIUM SERUM 140 mmol/L (136-145)
--- NOTE | 2019-10-17 07:30 | NUR ---
PT HAS ETT IN PLACE 21 CM TO LL. SEDATED ON VERSED AT 1/5MG/KG/HR AND FENTANYL 0.75MG/HOUR. OPENS EYES TO VERBAL COMMAND. NGT PLACE TO L NARE WITH VITAL AF FEEDING RUNNING AT 30ML/HOUR. MCCAULEY CATH IN PLACE, PATENT, DRAINING CLEAR YELLOW URINE TO GRAVITY. IV CATH TO RAC AND LFA WITH FLUIDS RUNNING. SITES WNL. IV CATH TO L/H S/L. SITE WNL. PT HAS ALS AND DOES NOT MOVE EXTREMITIES. PT WILL BE TURNED AND REPOSITIONED Q 2 HOURS AND PRN. ALL NEEDS ANTICIPATED BY STAFF. BED IN LOWEST POSITION. HOB ELEVATED FOR ASPIRATION PRECAUTIONS.
--- NOTE | 2019-10-17 08:39 | NUR ---
IV PEPCID AND HEPARIN SQ GIVEN. VERSED RUNNING AT 1/5MG/KG/HR AND FETANYL AT 0.75MG/H. AIR MATRESS PLACED FOR SKIN MAINTENANCE. PT REPOSITIONED FOR COMFORT. NO S/S OF PAIN NOTED. WILL CONTINUE TO MONITOR.
--- NOTE | 2019-10-17 10:23 | NUR ---
DR. NUÑEZ AND MEDICAL TEAM MET WITH PT AND DISCUSSED POC. PT IS TO BE EXTUBATED TODAY AT 1500.
--- NOTE | 2019-10-17 11:40 | NUR ---
ZOSYN IVPB STARTED. PT TURNED AND REPOSITIONED. ORAL CARE GIVEN, MCCAULEY CARE AND BED BATH PROVIDED WITH GOWN CHANGE. HOB ELEVATED FOR ASPIRATION PRECAUTIONS. WILL CONTINUE TO MONITOR.
--- NOTE | 2019-10-17 14:10 | NUR ---
VERSED AND FENTANYL DISCONTINUED. MORPHINE IV STARTED AT 5 MG/HOUR. PT IS CALM WITH S/S OF PAIN OR AGITATION. WILL CONTINUE TO MONITOR.
--- NOTE | 2019-10-17 15:03 | NUR ---
HR 107, B/P 159/98, (116), RR 22. MORPHINE IV INCREASED TO 7MG/HOUR. WILL CONTINUE TO MONITOR.
--- NOTE | 2019-10-17 15:16 | NUR ---
PT HR 105 AND RR 25, MORPHINE IV INCREASED TO 9MG/HOUR. WILL CONTINUE TO MONITOR.
--- NOTE | 2019-10-17 15:30 | NUR ---
HR 112, RR 28, INCREASED MORPHINE IV TO 11MG/HOUR.
--- NOTE | 2019-10-17 16:04 | NUR ---
PT HR 106, RR 21. MORPHINE INCREASED TO 13MG/HOUR.
--- NOTE | 2019-10-17 16:10 | NUR ---
MORPHINE TITRATED TO 15 MG/HR, HR 108, RR 26.
--- NOTE | 2019-10-17 16:40 | NUR ---
MORPHINE TITRATED TO 17 MG/HR, RR 26.
--- NOTE | 2019-10-17 16:55 | NUR ---
PT TRANSFERED TO 232 B ON ICU BED W/ MYSELF, SIRENA RT, CHONG GARAY. PT TOLERATED WELL, NO ADVERSE EVENTS TRANSPIRED.
--- NOTE | 2019-10-17 16:55 | NUR ---
MORPHINE TITRATED TO 20 MG/HR, PT GRIMACING.
--- NOTE | 2019-10-17 17:00 | NUR ---
PUT ON 2L NC.
--- NOTE | 2019-10-17 17:00 | NUR ---
EXTUBATED BY SIRENA BRAY, MYSELF AT BEDSIDE. VITA RN, JANIYA RN AT BEDSIDE. PT TOLERATED WELL. FAMILY AT BEDSIDE AT THIS TIME.
--- NOTE | 2019-10-17 17:10 | NUR ---
BP 176/98, HR=95, RR=20, O2SAT 95% ON 4LPMN/C, TELEMETRY#13 INPLACED. MORPHINE DRIPS INFUSING AT 19MG/HR AT THIS TIME. FAMILY MEMBERS AT BEDSIDE MADE AWARE OF CURRENT CONDITION.
--- NOTE | 2019-10-17 17:27 | NUR ---
MORPHINE TITRATED TO 22 MG/HR, PT MOANING.
--- NOTE | 2019-10-17 17:39 | NUR ---
MORPHINE TITRATED TO 24 MG/HR, PT GRIMACING AND GASPING FOR AIR.
--- NOTE | 2019-10-17 17:51 | NUR ---
PATIENT IS CURRENTLY DNR-PALLIATIVE CARE ONLY.
--- NOTE | 2019-10-17 19:20 | NUR ---
NO MOANING OR GRIMACING NOTED. RR 16/MIN. DNR, PALLIATIVE MEASURES ONLY. UNABLE TO DO FULL ASSESSMENT PER FAMILY REQUEST. MONK IN ROOM. NOTED RESPIRATION IS EVEN AND UNLABORED. ON MORPHINE DRIP AT 24 MG/HR. NG TUBE FEEDING VITAL AF 1.2 A 2ML/HR. CONTINUED FEEDING AT THIS RATE IS PER FAMILY REQUEST. MANY FAMILY MEMBERS IN ROOM.
--- NOTE | 2019-10-17 21:35 | NUR ---
FAMILY MEMBERS LEFT EXCEPT SON. PT'S SON STATED OK TO REPOSITION AND OBTAIN VITAL SIGNS. RR 15/MIN. NV 102/MIN. INCREASED MORPHINE DRIP FROM 24MG/HR TO 26MG/HR. NOTED RED RASHES TO RIGHT SIDE OF FLANK, LOWER ABD, MID BACK. SCANT YELLOW URINE TO MCCAULEY BAG. ON 5LPM OF O2 VIA NC. O2 SAT 90%. SALINE LOCK TO LEFT FORERAM, LEFT AC. MORPHINE DRIP IS INFUSING TO PERIPHERAL LINE TO RIGHT AC. IV SITES FREE FROM REDNESS OR SWELLING. HOB ELEVATED 2O DEG. NG TUBE TO LEFT NARE WELL SECURED. FEET ARE OFFLOADED FROM BED WITH PILLOWS. PROVIDED SON WITH RECLINER.
--- NOTE | 2019-10-17 23:25 | NUR ---
EYES CLOSED. RR 14/MIN, SHALLOW, GASPING LIKE BREATHING. HR 98/MIN, SINUS IN RHYTHM. NO MOANING OR GRIMACING NOTED. MORPHINE DRIP AT 26MG/HR. HOB KEPT ELEVATED 30 DEG. SON IN ROOM ON RECLINER CHAIR.
[2019-10-18 05:27] VITALS: BP 83/56
--- NOTE | 2019-10-18 06:47 | NUR ---
HEART RATE 96/MIN, RR 12/MIN, BREATHING IS STILL SHALLOW, GASPING LIKE. NO MOANING OR GRIMACING NOTED, MORPHINE DRIP AT 26MG/HR (52ML/HR). IV SITE TO RIGHT AC FREE FROM REDNESS OR SWELLING. HOB KEPT ELEVATED 30 DEG. SON AT BEDSIDE ON RECLINER CHAIR, EYES CLOSED. KEPT PT ON CONTACT ISOLATION.
--- NOTE | 2019-10-18 07:05 | NUR ---
STILL ON MORPHINE DRIP AT 26MG/HR. HR 98/MIN. RR 12/MIN. NO MOANING OR GRIMACING. ENDORSED TO NURSE JANIYA
--- NOTE | 2019-10-18 07:06 | NUR ---
RECEIVED A BEDSIDE REPORT. DNR WITH PALLIATIVE CARE ONLY. SEEN EYES CLOSED, NON RESPONSIVE TO PAINFUL STIMULI. ON MORPHINE DRIPS AT 26MG/HR TO RAC IV SITE. NGT TO LT NARE WITH VITAL 1.2 AT 2ML/HR. S/L TO LFA AND LT HAND INTACT. MCCAULEY CATH DRIANING TO GRAVITY DARK GREY. PATIENT'S SON AT BEDSIDE. CALL LIGHT PLACED WITHIN EASY REACH. SIDERAILS UP X2. CONTACT ISOLATION MAINTAINED FOR SHINGLES(DRY).
[2019-10-18 07:27] VITALS: BP 84/57
--- NOTE | 2019-10-18 09:00 | NUR ---
ORAL HYGIENE PROVIDED. HR=95.
--- NOTE | 2019-10-18 11:17 | NUR ---
Intervention/RDN Recommendation(s): 1. Continue Vital AF 1.2 at 30 mL/hr with FWF 50 mL Q4H via NGT if desired by responsible libertarian/MD during comfort care. This provides 720 mL volume, 864 kcal, 54 gm protein, and 583 mL free water, meeting 58% estimated energy needs and 58% estimated protein needs.
--- NOTE | 2019-10-18 11:17 | NUR ---
Follow-up Nutrition Assessment: Dx: respiratory failure, acute coronary syndrome PMHx: HTN, PE, ALS, shingles, non-verbal Labs: (10/17) Na 140, K 4.0, Glu 130 H, BUN 17, Cr 0.3 L, H/H 12.5/38 Meds: Ativan, neutraphos, Pepcid Nutrition Support: TF Vital AF 1.2 at 30 mL/hr via NGT. This provides 720 mL volume, 864 kcal, 54 gm protein, and 583 mL free water, meeting 58% estimated energy needs and 58% estimated protein needs. PO Intake: Pt on TF Weights: (10/15) 46 kg; (10/22) 43 kg I/Os: (10/12) 2076/2350 mL = -271 mL, (10/11) 3515/2650 = 865 mL Skin: Not WNL, ecchymosis to BUE, scabs and dark brown discoloration to mid back and right flank Alvino: 10 Edema: None GI: abd soft, BS hypoactive Last BM: 10/09/19 RD Note (10/18): Per Physician Progress Note (10/17), family has decided to withdraw all aggressive measures today (10/17) at 3pm. Plan to start comfort care at 3pm as per family's request. Estimated Nutritional Needs Based on ideal body weight of 62 kg. Energy: 6188-5199 kcal/d (25-30 kcal/kg for vent dependent) Protein: 93-124 gm/d (1.5-2.0 gm/kg for vent dependent) Fluid: 5346-7993 mL/d (1 mL/kcal) or per MD. Nutrition Diagnosis 1. Altered GI function related to pathophysiological causes as evidenced by Pt intubated and dependence on tube feeding for nutrition. (Ongoing) Intervention/RDN Recommendation(s): 1. Continue Vital AF 1.2 at 30 mL/hr with FWF 50 mL Q4H via NGT if desired by responsible green party/MD during comfort care. This provides 720 mL volume, 864 kcal, 54 gm protein, and 583 mL free water, meeting 58% estimated energy needs and 58% estimated protein needs. Monitor/Evaluate Goal: Intake via nutrition support to meet at least 80% of estimated needs with acceptable tolerance within 2-3 days. Monitor: nutrition support tolerance, Labs, GI function, Skin integrity, Weights. F/U in 5-7 days as high risk (-10/24)
--- NOTE | 2019-10-18 12:13 | NUR ---
HR=95, NO S/S OF PAIN AT THIS TIME. MORPHINE DRIPS CONTINUED AT 26MG/HR. FAMILY MEMBERS AT BEDSIDE.
[2019-10-18 12:32] VITALS: BP 81/52
[2019-10-18 16:46] VITALS: BP 75/48
--- NOTE | 2019-10-18 18:14 | NUR ---
NO CHANGED IN CONDITION, HR=95, BP 75/48, RR 15, O2SAT 94% ON 4LPM N/C. MORPHINE DRIPS REMAINS AT 26MG/HR. MCCAULEY CATH DRIANING TO GRAVITY GREY SCANT URINE OUTPUT.
[2019-10-18 19:22] VITALS: BP 72/46
--- NOTE | 2019-10-18 19:27 | NUR ---
EYES CLOSE, NO EYE OPENING. MELISSA SCALE 3. ON MORPHINE DRIP AT 26MG/HR. DNR-PALLIATIVE CARE. NO MOANING OR GRIMACING NOTED. FAMILY MEMBERS IN ROOM. PER SON, MOTHER TO STAY THE NIGHT. ON CONTACT ISOLATION.
--- NOTE | 2019-10-18 21:27 | NUR ---
REPOSITIONED PT FOR COMFORT. APPLIED LIP MOISTURIZER TO MOUTH. SON AND AT BEDSIDE.
--- NOTE | 2019-10-18 23:47 | NUR ---
changed iv morphine bag. hr 95/min, rr 12/min. son at bedside on recliner chair.
--- NOTE | 2019-10-19 01:58 | NUR ---
ON MORPHINE DRIP AT SAME RATE OF 26MG/HR. HR 95/MIN, RR 11/MIN. HOB KEPT ELEVATED 20 DEG. SON ON RECLINER CHAIR.
[2019-10-19 05:56] VITALS: BP 61/37
--- NOTE | 2019-10-19 06:37 | NUR ---
STILL ON MORPHINE DRIP AT 26MG/HR. HR 91/MIN, RR 12-14/MIN, SHALLOW. HOB KEPT ELEVATED 20 DEG. SON AT BEDSIDE.
--- NOTE | 2019-10-19 07:00 | NUR ---
RECEIVED REPORT FROM PUJA KESSLER AT BEDSIDE, PT SLEEPING IN BED, IN NO APPARENT ACUTE DISTRESS
--- NOTE | 2019-10-19 07:15 | NUR ---
morphine drip at 26mg/hr, hr 91/min, sinus rhythm. rr 12/min. iv sites free from redness or swelling. son at bedside. endorsed to nurse thi
--- NOTE | 2019-10-19 07:30 | NUR ---
PT SLEEPING IN BED, FAMILLY AT BEDSIDE, CONTACT ISO, IN NO ACUTE RESP DISTRESS, RESPONSE TO PAIN STIMULI ONLY, GASPING RESP, CHEST RISE SYMMETRICALLY, NOTED 15/MIN, TELE 13, NOTED 86/MIN, NO FACIAL GRIMMACE/MOANING NTOED AT THIS TIME, IV PATENT AND INFUSIGN WELL, MORPHINE DRIP NOTED 26MG/HR EQUAL 52ML/HR, FC PATENT AND DRAINED WELL, SKIN C/D/W, TURN Q2H PER TOLERATED, NGT TUBE PATENT AND INFUSING WELL AT 2L/HR, ALL NEEDS ADDRESED, SAFETY PROTOCOL FOLLOWED, CONTINUE TO MONITOR
[2019-10-19 09:03] VITALS: BP 60/35
--- NOTE | 2019-10-19 09:55 | NUR ---
NEW MORPHINE BAG CHANGED, PT SLEEPIGN IN BED, IN NO APPARENT ACUTE RESP DISTRESS AT THIS TIME, FAMILY AT BEDSIDE, RESP-18, HR-86, CO-CONFIRMED DOSE ANS WASTE W/ CELIA RN PER PROTOCOL, FAMILY REFUSED EVS TO CLEAN UP ROOM AND METALIZING MACHINE OPERATOR TRASH AT THIS TIME, FAMILY MADE AWARE TO CALL FOR HELP IF NEED TRASH AND ROOM CLEANED UP, VERBALLY UNDERSTANDING, ALL NEEDS ADDRESED, TURN Q2H PER TOLERATED, CONTINUE TO MONITOR
--- NOTE | 2019-10-19 11:03 | NUR ---
PT SLEEPIGN IN BED, IN NO APPARENT ACUTE DISTRESS, NO FACIAL GRIMACE/MOANING NOTED, RESP NOTED W/ GASPING, CHEST RISE SYMMETRICALLY, FAMILY AT BEDSIDE, QUESTIONS ASKED AND ANSWERED, NO FURTHER CONCERN NEEDED WHEN ASKED, IV PATENT AND INFUSIGN WELL AT 26MG/HR = 52ML/HR, TOELRATED WELL, TURN Q2H PER TOLERATED, SAFETY MONITOR, ALL NEEDS ADDRESSED AT THIS TIME, CONTINUE TO MONITOR
--- NOTE | 2019-10-19 12:03 | NUR ---
PT SEEN BY SIERRA CARMONAO, COMFORT MEASURE PROVIDED, ORAL CARE DONE, TURN Q2H TOLERATED, FAMILY AT BEDSIDE, CONTINUE TO MONITOR
--- NOTE | 2019-10-19 14:52 | NUR ---
PT SLEEPING IN BED, IN NO APPARENT ACUTE DISTRESS, NO FACIAL GIMMACE/MOANING NOTED, IV PATENT AND INFUSING WELL, NGT PATENT AND INFUSING WELL, SKIN C/D/W, TURN Q2H PER TOLERATED, FAMILY AT BEDSIDE, ALL NEEDS ADDRESED, SAFETY PROTOCL FOLLOWED, COMFORT MEASURE PROVIDED, CONTINUE TO MONITOR
[2019-10-19 16:41] VITALS: BP 51/31
--- NOTE | 2019-10-19 17:35 | NUR ---
PT SLEEPING IN BED, IN NO APPARENT ACUTE DISTRESS, PALLIATIVE CARE AT THIS TIME, NO FACIAL GRIMMACE/MOANING NOTED, BODY RELAX, RESP NOTED W/ PERIOD OF GASPING, CHEST RISE SYMMETRICALLY, TELE, 5L/MIN, NC, NGT PATENT AND INFUSING WELL, IV PATENT AND INFUSING WELL AT 52ML/HR = 26 MG/HR, FC PATENT AND DRAINED WELL, DARK YELLOW, TURN Q2H TOLERATED, FAMILY AT BEDSIDE, ALL NEEDS ADDRESSED AT THIS TIME, COMFORT MEASURE PROVIDED, WILL ENDORSE TO ONCOMING RN
--- NOTE | 2019-10-19 19:30 | NUR ---
PT IS NON VERBAL, GRIMACING TO PAIN. TELE #13, SR. WEAK PULSES. NO EDEMA NOTED. LUNGS CLEAR IN ALL FEILDS. ON 5L NC. EQUAL CHEST RISE AND FALL. BREATHING EVEN AND UNLABORED. NG TUBE IN L NARE, INTACT AND SECURE. VITAL 1.2 RUNNING AT 2ML HR WITH NO FWF. RESIDUAL 1.5ML, RETURNED. PT TOLERATING. BOWEL SOUNDS ARE PRESENT. MCCAULEY BAG BELOW THE BLADDER. NO DEPENDENT LOOP OR KINK NOTED. DARK YELLOW URINE NOTED. IV ON RAC INTACT AND PATENT, RUNNING MORPHINE DRIP AT 26MG/HR (52ML/HR). BAG IS NOTED ALMOST EMPTY, CHECKED FOR BACKUP BAG WITH AM RN AND NONE NOTED, WILL CALL PHARMACY FOR REPLACEMENT BAG. SALINE LOCKED ON LAC AND LFA. INTACT AND CLEAN. SON IS AT BEDSIDE. BED IS AT LOWET SETTING. CALL LIGHT WITHIN REACH. WILL CONTINUE TO [facility].
--- NOTE | 2019-10-19 19:37 | NUR ---
PHARMACY WAS CALLED AND NOTIFIED ABOUT MORPHINE DRIP ALMOST COMPLETED AND NEW BAG IS NEEDED. NO REPLACEMENT BAG IN THE MED [facility]AFE. THEY WILL BRING UP THE MORPHINE BAG.
--- NOTE | 2019-10-19 20:51 | NUR ---
MORPHINE BAG WAS REPLACED, RUNNING AT 26MG/HR (52ML/HR). SON PRESENT AT BEDSIDE. 19CC OF MORPHINE WAS WASTED FROM PRIOR BAG, CO-SIGNED WITH ANOTHER RN. WILL CONTINUE TO [facility].
[2019-10-19 20:56] VITALS: BP 50/29
--- NOTE | 2019-10-20 00:59 | NUR ---
PT IS RESTING IN BED WITH BOTH EYES CLOSED. MORPHINE RUNNING AT 26MG/HR (52ML/HR). NG TUBE SECURED. TUBE FEEDING RUNNING PER ORDER. SON IS AT BEDSIDE. REPOSITIONED PT. BED IS AT LOWEST SETTING. CALL LIGHT WITHIN REACH. WILL CONTINUE TO [facility].
[2019-10-20 06:35] VITALS: BP 52/22
--- NOTE | 2019-10-20 06:43 | NUR ---
PT IS RESTING IN BED. SLOW, SHALLOW BREATHS. SR ON TELE #13. NEW MORPHINE BAG WAS PLACED. RUNNING AT 52ML/HR. SON AT BEDSIDE ALL NIGHT. NO ACUTE EVENT OCCURED AT NIGHT. BED IS AT LOWEST SETTING. CALL LIGHT WITHIN REACH. WILL ENDORSE TO AM NURSE.
--- NOTE | 2019-10-20 07:00 | NUR ---
EYES CLOSED, NON VERBAL. ON PALLIATIVE CARE, MORPHINE DRIP. MORPHINE DRIP AT 26 MG PER HOUR/52ML PER HOUR. TELE # 13 SR. LUNGS CTA, BREATHING SHALLOW BUT REGULAR. O2 5L NC. BS'S ACTIVE TIMES 4. IV SITE PATENT,CDI. SON AT BEDSIDE, PHI LONG. PERIPHERAL PULSES PALPABLE. NO EDEMA. NO SIGNS OF DISCOMFORT.
[2019-10-20 09:11] VITALS: BP 46/25
--- NOTE | 2019-10-20 12:39 | NUR ---
PATIENT RESTING EASY. MORPHINE DRIP INFUSING AT 26 MG PER KERRY, 52 ML PER HOUR. FAMILY PRESENT. LAST SET OF VITAL SIGNS WAS TEMP OF 97, HR 85, RESP 10, BP 46/25. PATIENT IS DNR PALLIATIVE CARE WITH A MORPHINE DRIP. FAMILY REFUSES US TO TURN HIM. IV SITE CDI.
--- NOTE | 2019-10-20 18:20 | NUR ---
NON VERBAL. ON PALLIATIVE CARE. MORPHINE DRIP 26 MG PER HOUR, 52 ML PER HOUR. IV SITE CDI. MCCAULEY CATH WITH 50 ML OF GREY URINE TO BSD. ON ISOGEL BED. FAMILY REQUESTING NOT TO TURN PATIENT. O2 4L NC. FAMILY PRESENT, SUPPORTIVE AND CARING. TELE # 13 SR.
--- NOTE | 2019-10-20 19:30 | NUR ---
PT IS NONVERBAL. ON PALLIATIVE CARE. NON REACTIVE TO TACTILE OR PAIN STIMULI. TELE #13, SR, HR 70S. WEAK PULSES. LUNGS DIMINISHED, ON 5L NC. AGONAL BREATHING NOTED. BOWELS ARE HYPOACTIVE. NGT ON L NARE. VITAL 1.2 RUNNING AT 2ML WITH NO FWF. MCCAULEY BAG BELOW THE BLADDER. NO DEPENDENT LOOP NOTED. NO URINE NOTED IN BAG. BED BOUND. SALINE LOCKED ON LFA AND LAC. IV ON RAC HAS MORPHINE DRIP RUNNING AT 26MG/HR (52ML/HR). NO SIGN OF INFILTRATION OR IRRITATION. IS AT BEDSIDE. BED IS AT LOWEST SETTING. CALL LIGHT WITHIN REACH. WILL CONTINUE TO [facility].
[2019-10-20 21:43] VITALS: BP 52/24
--- NOTE | 2019-10-20 22:30 | NUR ---
ASYSTOLE NOTED ON TELE MONITOR. MD POON WAS NOTIFIED. PT IS UNRESPONSIVE, NO BREATHING NOTED. MD AT BEDSIDE. PRONOUNCED PT AT 2218. WAS AT BEDSIDE. MORPHINE DRIP WAS DISCONTINUED, WASTE 310ML WAS WITNESSED WITH VICTORIA COLLIER.
--- NOTE | 2019-10-20 22:34 | NUR ---
[facility] WAS CALLED. SPOKE WITH KAILEE SANCHEZ. WILL AWAIT CALL BACK.
--- NOTE | 2019-10-20 22:37 | NUR ---
[facility] WAS CONTACTED. SPOKE WITH ALLI MACIAS. STATED PT OK FOR TISSUE DONATION ONLY. WAS GIVEN REFFERAL NUMBER [id number]. ALLI STATED SHE WILL CALL BACK FOR [facility]NERS UPDATE.
--- NOTE | 2019-10-20 23:05 | NUR ---
[facility] CALLED BACK. SPOKE WITH KIRA WORRELL. WAS NOTIFIED IT WAS NOT A [facility] CASE. CASE #[id number].
--- NOTE | 2019-10-21 03:18 | NUR ---
[facility] CALLED AND SPOKE WITH ALLI. GAVE PEDRO INFORMATION. INFORMED HER THAT PT IS STILL IN ROOM D/T PT ORTHODOXY BELIEFS.
== END 2019-10-20 22:18 | disposition expired | DRG 720 ==
LOC: ED 11:58 → IC 14:52 → DU 14:52 → IC 10-09 09:53 → DU 10-17 16:51
PROVIDERS: Emergency Medicine; Family Medicine; ADMIT Student in an Organized Health Care Education/Training Program
PROC: 5A09357 Assistance with Respiratory Ventilation, Less than 24 Consecutive Hours, Continuous Positive Airway Pressure (ICD-10-PCS; 2019-10-07)
PROC: 5A09457 Assistance with Respiratory Ventilation, 24-96 Consecutive Hours, Continuous Positive Airway Pressure (ICD-10-PCS; 2019-10-08)
PROC: 5A1955Z Respiratory Ventilation, Greater than 96 Consecutive Hours (ICD-10-PCS; principal; 2019-10-09)
PROC: 0BH17EZ Insertion of Endotracheal Airway into Trachea, Via Natural or Artificial Opening (ICD-10-PCS; 2019-10-09)
DX: A41.9 Sepsis, unspecified organism (principal); I26.99 Other pulmonary embolism without acute cor pulmonale; E43 Unspecified severe protein-calorie malnutrition; G12.21 Amyotrophic lateral sclerosis; J69.0 Pneumonitis due to inhalation of food and vomit; J96.21 Acute and chronic respiratory failure with hypoxia; G92 Toxic encephalopathy; Z66 Do not resuscitate; J44.9 Chronic obstructive pulmonary disease, unspecified; E87.6 Hypokalemia; R31.9 Hematuria, unspecified; J98.11 Atelectasis; E78.5 Hyperlipidemia, unspecified; R65.20 Severe sepsis without septic shock; B02.9 Zoster without complications; I10 Essential (primary) hypertension; Z74.01 Bed confinement status; Z86.711 Personal history of pulmonary embolism; Z68.1 Body mass index [BMI] 19.9 or less, adult; Z87.891 Personal history of nicotine dependence; Z79.82 Long term (current) use of aspirin; Z79.899 Other long term (current) drug therapy; Z51.5 Encounter for palliative care
CPT/HCPCS: 36600; 76770; 82962; 83880; 84439; A4628; G0378; J0330; J1644; J2001; J2250; J2270; J2543; J3010; J3480; J3490; J7030; J7040; J7042; J7620; Q0092